=== PATIENT | male | born 1960 | race Caucasian/White ===

== ENCOUNTER 2021-09-29 19:18 | Inpatient (IN) | payer BC, SELFPAY ==
--- OUTSIDE RECORDS SUMMARY | 2021-09-29 19:21 | XMS REPORT | Continuity of Care Document ---
:1960 Author Organization [facility] t Address [address] [place] [address] Care Team Providers Name Role Phone PCP, DOES NOT HAVE A Primary Care Physician Unavailable Provider, Urgent Care Attending Clinician Unavailable Ebranguyen CHIEF ACCOUNTANT Attending Clinician EBRAHIM Attending Clinician Unavailable HUMAN, F Attending Clinician Unavailable Problems Condition Condition Condition Status Onset Resolution Last Treating Co mments Source Name Details Category Date Date Treatment Clinician Date No known No known Disease Unive rs active active ity of problems problems [facility] Allergies, Adverse Reactions, Alerts Allergy Allergy Status Severity Reaction(s) Onset Inactive Treating Comm ents Source Name Type Date Date Clinician NO KNOWN Drug Active Univers ALLERGIE Class ity of S [facility] Social History Social Habit Start Date Stop Date Quantity Comments Source Sex Assigned At Uni versity of [facility] Exposure to SARS-CoV-2 Not sure Un [facility] [place] (event) [facility] Smoking Status Start Date Stop Date Source Never smoker [facility] Medications Ordered Filled Start Stop Current Ordering Indication Dosage Frequency Signature Comments Components Source Medication Medication Date Date Medication? Clinician (SIG) Name Name amLODIPine 2020-0 Yes 5mg Take 5 mg Un jay 5 mg tablet 7-04 by mouth ity of 20:37: daily. [address] Branch carvediloL 2020-0 Yes 25mg Take 25 mg U nivers 25 mg 7-04 by mouth 2 ity of tablet 20:37: (two) [place] times [facility] daily with Branch meals. cephALEXin 2020-0 2020- No [id number] 500mg Take 1 Univers 500 mg -11-21 [id number] capsule by ity of capsule 00:00: 04:59 mouth 2 [place] 00 :00 (two) Medical [facility] daily for 10 days. acetaminoph 2020-0 Yes [id number] 1{tbl} Take 1 Univers en-codeine 4-26 tablet by ity of 300-30 mg 00:00: mouth [place] tablet 00 every 6 Medical (six) Branch hours as needed for Pain (scale 7-10). lisinopril- Yes TAKE 2 [facility] ers hydrochloro 2-06 TABLETS BY it y of thiazide 00:00: MOUTH ONCE Davy as 20-12.5 mg 00 DAILY FOR [facility] per tablet 90 DAYS [place] Vital Signs Vital Name Observation Time Observation Value Comments Source Systolic blood 2019-11-11 20:32:00 136 mm[Hg] Univer sity of pressure [facility] Diastolic blood 2019-11-11 20:32:00 85 mm[facility]Hg[facility] rate 2019-11-11 20:32:00 64 /min [facility] Body temperature 2019-11-11 20:32:00 37 Beatriz [facility] Respiratory rate 2019-11-11 20:32:00 18 /min [facility] Body height 2019-11-11 20:32:00 181.6 cm [facility] Body weight 2019-11-11 20:32:00 137.893 kg [facility] BMI 2019-11-11 20:32:00 41.81 kg/m2 [facility] Oxygen saturation in 2019-11-11 20:32:00 96 /min [facility] Arterial blood by [facility] Pulse oximetry Branch Procedures This patient has no known procedures. Encounters Start End Encounter Admission Attending Care Care Encounter Source Date/Time Date/Time Type Type Clinicians Facility Department ID 2020-07-06 2020-07-06 Outpatient [facility] [id number] Univers 12:30:00 12:30:[address] [facility] 2019-11-11 2019-11-11 Urgent Provider, [facility] [id number] Univers 15:29:27 15:49:27 [facility] [id number] ity [facility] [id number] Davy as Nathaly [id number] Id dical [facility] [address] 2019-11-11 2019-11-11 Outpatient R LAUREL [facility] [id number] Univers 15:00:00 15:00:00 MAIKEL arnold [facility] 2019-09-03 2019-09-03 Outpatient [facility] [id number] Univers 15:00:00 15:00:00 MARCE [facility] Results This patient has no known results.
[2021-09-29 21:52] LABS: Absolute Lymphocytes (CBC) 1.3 K/uL (0.7-4.9); Hematocrit 42.8 % (39.6-49.0); MPV 7.4 fL (7.6-11.3); RBC Red Blood Cell Count 4.74 M/uL (4.33-5.43)
[2021-09-29 22:00] LABS: Albumin 2.9 g/dL (3.4-5.0); Bilirubin Total 0.5 mg/dL (0.2-1.0); Potassium 4.2 mmol/L (3.5-5.1); Protein, Total 7.7 g/dL (6.4-8.2)
[2021-09-29 22:05] LABS: Protime INR 1.1
--- NOTE | 2021-09-29 23:22 | EDPHYS ---
Physician Documentation [facility] Name: Audi Alfaro Age: 61 yrs Sex: Male : 1960 Arrival Date: 09/29/2021 Time: 20:08 Bed 3 Private MD: ED Physician Kermit Boyle HPI: 09/29 21:30 This 61 yrs old Male presents to ER via Other with complaints of Foot Pain. cp 21:30 The patient presents with pain, that is acute. cp 21:30 The complaints affect the right foot. Context: resulted from an unknown cause, the cp patient can fully bear weight, the patient is able to ambulate, with moderate difficulty. Onset: The symptoms/episode began/occurred gradually. Associated signs and symptoms: Pertinent positives: warmth, Pertinent negatives fever. Historical: - Allergies: 20:54 No Known Allergies; tw5 - PMHx: 20:54 Hypertensive disorder; Irregular heart rate; tw5 - Immunization history:: Flu vaccine is not up to date. - Social history:: Smoking status: Patient denies any tobacco usage or history of. ROS: 21:33 Constitutional: Negative for body aches, chills, fever, poor PO intake. cp 21:33 Eyes: Negative for injury, pain, redness, and discharge. cp 21:33 ENT: Negative for drainage from ear(s), ear pain, sore throat, difficulty swallowing, difficulty handling secretions. 21:33 Cardiovascular: Negative for chest pain, palpitations. 21:33 Respiratory: Negative for cough, shortness of breath, wheezing. 21:33 Abdomen/GI: Negative for abdominal pain, nausea, vomiting, and diarrhea. 21:33 Back: Negative for pain at rest, pain with movement. 21:33 MS/extremity: Positive for pain, of the right foot, Negative for injury or acute deformity. 21:33 Neuro: Negative for altered mental status, headache, weakness. 21:33 All other systems are negative. Exam: 21:33 ECG was reviewed by the Attending Physician. cp 21:40 Constitutional: The patient appears in no acute distress, alert, awake, cp non-diaphoretic, non-toxic, well developed, well nourished. 21:40 Head/Face: Normocephalic, atraumatic. cp 21:40 Eyes: Periorbital structures: appear normal, Conjunctiva: normal, no exudate, no injection, Sclera: no appreciated abnormality, Lids and lashes: appear normal, bilaterally. 21:40 ENT: External ear(s): are unremarkable, Nose: is normal, Mouth: Lips: moist, Oral mucosa: moist, Posterior pharynx: Airway: no evidence of obstruction, patent. 21:40 Chest/axilla: Inspection: normal. 21:40 Cardiovascular: Rate: normal, Rhythm: regular. 21:40 Respiratory: the patient does not display signs of respiratory distress, Respirations: normal, no use of accessory muscles, no retractions, labored breathing, is not present, Breath sounds: are clear throughout, no decreased breath sounds, no stridor, no wheezing. 21:40 Abdomen/GI: Inspection: abdomen appears normal, Palpation: abdomen is soft and non-tender, in all quadrants. 21:40 Musculoskeletal/extremity: Extremities: noted in the right foot and right lower leg: erythema, pain, swelling, tenderness, drainage from multiple superficial wounds noted on dorsum of foot, Pulses: noted to be 2+ in the right dorsalis pedis artery and left dorsalis pedis artery. 21:40 Skin: rash a severe rash is noted, consistent with eczema, on the right foot and left foot and left lower leg and right lower leg. 21:40 Neuro: Orientation: to person, place \\T\\ time. Mentation: is normal, Motor: moves all fours, strength is normal. Vital Signs: 20:49 Pulse 65; Resp 18; Temp 98.7(O); Pulse Ox 99% on R/A; Weight 120.2 kg; Height 5 ft. 11 tw5 in. (180.34 cm); Pain 8/10; 21:54 BP 122 / 80; Pulse 64; Resp 22 S; Pulse Ox 100% on R/A; lg3 22:33 BP 112 / 78; Pulse 65; Resp 20 S; Pulse Ox 100% on R/A; lg3 23:44 BP 120 / 81; Pulse 64; Resp 22 S; Pulse Ox 100% on R/A; lg3 09/30 00:49 BP 129 / 87; Pulse 64; Resp 18 S; Pulse Ox 100% on R/A; lg3 09/29 20:49 Body Mass Index 36.96 (120.20 kg, 180.34 cm) tw5 MDM: 09/29 21:00 Differential diagnosis: cellulitis, abscess, DVT. cp 21:03 Patient medically screened. 23:00 Data reviewed: vital signs, nurses notes, lab test result(s), EKG, radiologic studies, cp plain films. 23:00 Test interpretation: by ED physician or midlevel provider: ECG, plain radiologic cp studies. 23:10 Physician consultation: Rebel Mccurdy was called at 23:10, was contacted at 23:10, regarding admission, to the medical/surgical unit. patient's condition, and will see patient in ED, shortly. 09/29 20:56 Order name: Blood Culture Adult (2) 09/29 20:56 Order name: CBC with Diff; Complete Time: 22:56 09/29 20:56 Order name: CMP; Complete Time: 22:56 09/29 20:56 Order name: Lactate; Complete Time: 22:56 09/29 20:56 Order name: Protime (+inr); Complete Time: 22:56 09/29 20:56 Order name: Ptt, Activated; Complete Time: 22:56 09/29 20:56 Order name: Procalcitonin; Complete Time: 22:56 09/29 20:56 Order name: CRP; Complete Time: 22:56 09/29 20:56 Order name: XRAY Foot RIGHT 3 View 09/29 20:56 Order name: ESR; Complete Time: 22:56 09/29 21:45 Order name: US Extremity Venous W Compression Esdras 09/29 23:22 Order name: COVID-19 SARS RT PCR (Document "Date of Onset" if Symptomatic) mw2 09/29 20:56 Order name: Cardiac monitoring; Complete Time: 21:39 cp 09/29 20:56 Order name: EKG - Nurse/Tech; Complete Time: 21:31 cp 09/29 20:56 Order name: IV Saline Lock - Large Bore; Complete Time: 21:23 cp 09/29 20:56 Order name: Labs collected and sent; Complete Time: 21:23 cp 09/29 20:56 Order name: O2 Per Protocol; Complete Time: 21:33 cp 09/29 20:56 Order name: O2 Sat Monitoring; Complete Time: 21:33 cp EC:33 Rate is 60 beats/min. Rhythm is regular. [place] interval is normal. QRS interval is normal. cp QT interval is normal. T waves are Inverted in lead aVR. Interpreted by me. Reviewed by me. Administered Medications: 23:32 Drug: Cefepime 1 grams Route: IVPB; Rate: 200 ml/hr; Infused Over: 30 mins; Site: right lg3 antecubital; 23:39 Follow up: Response: No adverse reaction; IV Status: Completed infusion; IV Intake: lg3 100ml 23:40 Drug: vancoMYCIN 1 grams Route: IVPB; Infused Over: 2 hrs; Site: right antecubital; lg3 09/30 01:41 Follow up: Response: No adverse reaction; IV Status: Completed infusion; IV Intake: as6 250ml Disposition: 04:03 Co-signature as Attending Physician, Kermit Boyle MD I agree with the assessment and kdr plan of care. Disposition Summary: 09/29/21 23:21 Hospitalization Ordered Hospitalization Status: Inpatient Admission cp Condition: Stable cp Problem: new cp Symptoms: have improved cp Bed/Room Type: Standard cp Provider: Jeniffer Pedersen(09/29/21 23:25) la1 Location: Telemetry/MedSurg (Inpatient)(09/30/21 01:22) mw Room Assignment: [facility](09/30/21 01:22) Diagnosis - Cellulitis of right lower limb cp Forms: - Medication Reconciliation Form cp - SBAR form cp Signatures: Dispatcher [employer] EDMS Tamiko Mcleod RN RN mw Rittger, Kevin, MD MD kdr Attema, Lee, CREDIT COUNSELOR-C CREDIT COUNSELOR-Cla1 Armen Collazo PA PA cp Gibson, Lacie, RN RN 3 Gloria Moore tw5 Bernard Flaherty RN as6 Corrections: (The following items were deleted from the chart) 09/29 23: 23:21 Telemetry/MedSurg (Inpatient) [facility] 23:21 cp 23:21 Hemant Dawn la1 09/30 00:09/29 23:22 [facility] ER HOLD mw 09/30 00:09/29 23:22 ERHOLD- mw
--- NOTE | 2021-09-29 23:22 | ER ---
Nurse's Notes [facility] Name: Audi Alfaro Age: 61 yrs Sex: Male : 1960 Arrival Date: 09/29/2021 Time: 20:08 Bed 3 Private MD: Diagnosis: Cellulitis of right lower limb Presentation: 09/29 20:49 Chief complaint: Patient states: "My feet all weekend are hurting. Last night I could tw5 not stand on the left foot at all. I have been suffering since last fall from eczema, it now looks like my feet are rotting away.". Coronavirus screen: Vaccine status: Patient reports receiving the 2nd dose of the covid vaccine. [employer]. Ebola Screen: Patient negative for fever greater than or equal to 101.5 degrees Fahrenheit, and additional compatible Ebola Virus Disease symptoms Patient denies exposure to infectious person. Patient denies travel to an Ebola-affected area in the 21 days before illness onset. Initial Sepsis Screen: Does the patient meet any 2 criteria? No. Patient's initial sepsis screen is negative. Does the patient have a suspected source of infection? Yes: Skin breakdown/wound. Risk Assessment: Do you want to hurt yourself or someone else? Patient reports no desire to harm self or others. Onset of symptoms is unknown. 20:49 Method Of Arrival: Other tw5 20:49 Acuity: ULYSSES 3 tw5 Triage Assessment: 20:54 General: Appears in no apparent distress. Behavior is calm, cooperative, appropriate tw5 for age. Pain: Complains of pain in right leg Pain currently is 8 out of 10 on a pain scale. Derm: Skin is moist, Skin is red, Skin temperature is warm. Historical: - Allergies: 20:54 No Known Allergies; tw5 - PMHx: 20:54 Hypertensive disorder; Irregular heart rate; tw5 - Immunization history:: Flu vaccine is not up to date. - Social history:: Smoking status: Patient denies any tobacco usage or history of. Screenin:56 Abuse screen: Denies threats or abuse. Denies injuries from another. Nutritional tw5 screening: No deficits noted. Tuberculosis screening: No symptoms or risk factors identified. Fall Risk Ambulatory Aid- Crutches/Cane/Walker (15 pts). Assessment: 21:39 General: Appears in no apparent distress. comfortable. Pain: Complains of pain in right lg3 foot and left foot. Neuro: No deficits noted. Sales Agitation-Sedation Scale (RASS): 0 - Alert and Calm Level of Consciousness is awake, alert, obeys commands, Oriented to person, place, time, situation. Cardiovascular: No deficits noted. Denies chest pain, shortness of breath. Respiratory: No deficits noted. Airway is patent Trachea midline Respiratory effort is even, unlabored, Respiratory pattern is regular, symmetrical. GI: No deficits noted. Abdomen is round non-distended, obese. : No deficits noted. No signs and/or symptoms were reported regarding the genitourinary system. EENT: No deficits noted. No signs and/or symptoms were reported regarding the EENT system. Derm: generalized eczema noted. Musculoskeletal: No deficits noted. No signs and/or symptoms reported regarding the musculoskeletal system. 22:32 Reassessment: Patient appears in no apparent distress at this time. No changes from lg3 previously documented assessment. Patient and/or family updated on plan of care and expected duration. Pain level reassessed. Patient is alert, oriented x 3, equal unlabored respirations, skin warm/dry/pink. 09/30 00:49 Reassessment: Patient appears in no apparent distress at this time. No changes from lg3 previously documented assessment. Patient and/or family updated on plan of care and expected duration. Pain level reassessed. Patient is alert, oriented x 3, equal unlabored respirations, skin warm/dry/pink. Vital Signs: 09/29 20:49 Pulse 65; Resp 18; Temp 98.7(O); Pulse Ox 99% on R/A; Weight 120.2 kg; Height 5 ft. 11 tw5 in. (180.34 cm); Pain 8/10; 21:54 BP 122 / 80; Pulse 64; Resp 22 S; Pulse Ox 100% on R/A; lg3 22:33 BP 112 / 78; Pulse 65; Resp 20 S; Pulse Ox 100% on R/A; lg3 23:44 BP 120 / 81; Pulse 64; Resp 22 S; Pulse Ox 100% on R/A; lg3 09/30 00:49 BP 129 / 87; Pulse 64; Resp 18 S; Pulse Ox 100% on R/A; lg3 09/29 20:49 Body Mass Index 36.96 (120.20 kg, 180.34 cm) tw5 ED Course: 09/29 20:08 Patient arrived in ED. ag3 20:12 Armen Collazo PA is PHCP. cp 20:12 Kermit Boyle MD is Attending Physician. cp 20:54 Triage completed. tw5 20:54 Arm band placed on right wrist. tw5 21:03 Joanna Pete, RN is Primary Nurse. lg3 21:23 Inserted saline lock: 20 gauge in right antecubital area, using aseptic technique. as6 Blood collected. 21:39 Patient has correct armband on for positive identification. Bed in low position. Call lg3 light in reach. Side rails up X 1. Client placed on continuous cardiac and pulse oximetry monitoring. NIBP monitoring applied. monitoring tech on. Door closed. Noise minimized. Warm blanket given. Family accompanied patient. 21:39 Procalcitonin Sent. lg3 21:39 CRP Sent. lg3 21:39 Blood Culture Adult (2) Sent. lg3 21:39 CBC with Diff Sent. lg3 21:39 CMP Sent. lg3 21:39 Lactate Sent. lg3 21:39 Protime (+inr) Sent. lg3 21:39 Ptt, Activated Sent. lg3 21:46 XRAY Foot RIGHT 3 View In Process Unspecified. EDMS 22:13 US Extremity Venous W Compression Esdras In Process Unspecified. EDMS 23:20 Hemant Dawn is Hospitalizing Provider. cp 23:25 Jeniffer Pedersen MD is Hospitalizing Provider. la1 09/30 01:31 No provider procedures requiring assistance completed. Patient admitted, IV remains in lg3 place. intact, No redness/swelling at site. Administered Medications: 09/29 23:32 Drug: Cefepime 1 grams Route: IVPB; Rate: 200 ml/hr; Infused Over: 30 mins; Site: right lg3 antecubital; 23:39 Follow up: Response: No adverse reaction; IV Status: Completed infusion; IV Intake: lg3 100ml 23:40 Drug: vancoMYCIN 1 grams Route: IVPB; Infused Over: 2 hrs; Site: right antecubital; lg3 09/30 01:41 Follow up: Response: No adverse reaction; IV Status: Completed infusion; IV Intake: as6 250ml Medication: 09/29 23:43 VIS not applicable for this client. lg3 Intake: 23:39 IV: 100ml; Total: 100ml. lg3 09/30 01:41 IV: 250ml; Total: 350ml. as6 Outcome: 09/29 23:21 Decision to Hospitalize by Provider. cp 09/30 01:31 Admitted to Med/surg accompanied by tech, via wheelchair, room 212, Report called to lg3 Cameron Condition: stable Instructed on the need for admit. 01:49 Patient left the ED. as6 Signatures: Dispatcher [employer] EDMS Rebel Mccurdy, NAVAL GUNFIRE SPOTTER-C NAVAL GUNFIRE SPOTTER-Cla1 Armen Collazo PA PA cp Gomez, Alice ag3 Joanna Pete, RN RN lg3 Gloria Moore tw5 Bernard Flaherty, SEBASTIAN RN as6
[2021-09-29] MEDS ORDERED: NA CHLORIDE 0.9% 250 ML ONE (23:26)
[2021-09-29] MEDS ORDERED: VANCOMYCIN 1 GM/VIAL ONE (23:26)
[2021-09-29] MEDS ORDERED: NA CHLORIDE 0.9% 100 ML ONE (23:27)
[2021-09-29] MEDS ORDERED: CEFEPIME 1 GM/VIAL ONE (23:27)
--- NOTE | 2021-09-29 23:39 | P.HP ---
Certification for Inpatient Patient admitted to: Inpatient With expected LOS: >2 Midnights Patient will require the following post-hospital care: None Practitioner: I am a practitioner with admitting privileges, knowledge of patient current condition, hospital course, and medical plan of care. Services: Services provided to patient in accordance with Admission requirements found in Title 42 Section 412.3 of the Code of Federal Regulations Patient History Date of Service: 09/29/21 Reason for admission: BLE cellulitis History of Present Illness: 61-year-old male history of eczema and hypertension presented to the emergency department for redness, warmth and weeping of bilateral lower extremities. Patient reports that he deals with severe eczema chronically worse over the last few months he is on Dupixent from his wedding planner he reports over the course of the last couple of weeks he has had worsening of the redness, weeping of bilateral lower extremities as well as pain in his feet. Patient was evaluated in the emergency department his labs were significant for leukocytosis ultrasound of bilateral lower extremities negative for DVT x-ray pending. His initial lactic acid was 1.4 he was given vancomycin/cefepime in the emergency department is also noted to have an elevated C-reactive protein level ED provider wishes to admit for further evaluation and management of bilateral lower extremity cellulitis. Allergies No Known Allergies Allergy (Verified 03/15/16 08:20) Home Medications: Carvedilol 25 mg PO BID 03/15/16 Indomethacin [Indocin*] 50 mg PO BID PRN 03/15/16 Lisinopril/Hydrochlorothiazide [Lisinopril-Hctz 20-12.5 mg Tab] 1 tab PO DAILY 03/15/16 - Past Medical/Surgical History Diabetic: No -: svt -: Hypertension -: Eczema -: appendectomy (7 years old) -: ear tubes (child0 Psychosocial/ Personal History: Patient lives at home with family - Family History Mother -: Heart disease, Hypertension Father -: Hypertension, Diabetes - Social History Smoking Status: Never smoker Alcohol use: Yes CD- Drugs: No Caffeine use: Yes Place of Residence: Home Review of Systems 10-point ROS is otherwise unremarkable General: Chills Musculoskeletal: Leg Pain, Foot Pain Integumentary: Rash, As per HPI Physical Examination - Physical Exam General: Alert, In no apparent distress, Oriented x3 HEENT: Atraumatic, PERRLA, Mucous membr. moist/pink, EOMI, Sclerae nonicteric Neck: Supple, 2+ carotid pulse no bruit, No LAD, Without JVD or thyroid abnormality Respiratory: Clear to auscultation bilaterally, Normal air movement Cardiovascular: Regular rate/rhythm, Normal S1 S2 Gastrointestinal: Normal bowel sounds, No tenderness Musculoskeletal: Erythema, Tenderness, Warmth Integumentary: Rash(es) (Extensive eczema changes significantly worse to bilateral lower extremities but present throughout upper and lower extremities, trunk), Skin breakdown, Erythema, Warmth Neurological: Normal speech, Normal strength at 5/5 x4 extr, Normal tone, Normal affect - Studies Laboratory Data (last 24 hrs) 09/29/21 21:19: PT 12.1, INR 1.10, APTT 37.0 H 09/29/21 21:19: Sodium 135 L, Potassium 4.2, BUN 15, Creatinine 1.02, Glucose 113 H, Total Bilirubin 0.5, AST 23, ALT 29, Alkaline Phosphatase 56 09/29/21 21:19: WBC 13.0 H, Hgb 14.3, Hct 42.8, Plt Count 305 Assessment and Plan - Plan Assessment: Bilateral lower extremity cellulitis complicated with severe eczema Hypertension Plan: Bilateral lower extremity cellulitis complicated with severe eczema: Blood cultures were obtained in the emergency department continue broad-spectrum antibiotics cefepime/vancomycin at this time. Labs are notable for leukocytosis. DVT study is negative patient went to follow-up with dermatology outpatient for further evaluation of his eczema. Hypertension: Continue home medication DVT PPX: Lovenox Code status: Full Discharge Plan: Home Plan to discharge in: 48 Hours - Advance Directives Does patient have a Living Will: No Does patient have a Durable POA for Healthcare: No - Code Status/Comfort Care Code Status Assessed: Yes (Full code) Critical Care: No Time Spent Managing Pts Care (In Minutes): 55
[2021-09-30] MEDS ORDERED: HYDROCODONE/APAP 5/325 MG TAB PO PRN (02:07)
[2021-09-30] MEDS ORDERED: ONDANSETRON 4 MG/2 ML VIAL IV PRN (02:07)
[2021-09-30] MEDS ORDERED: VANCOMYCIN 1 GM in NA CHLORIDE 0.9% 250 ML IVPB SCH (02:07)
[2021-09-30 02:42] VITALS: O2SAT 96
[2021-09-30] MEDS ORDERED: VANCOMYCIN 1 GM in NA CHLORIDE 0.9% 250 ML IVPB ONE (03:00)
[2021-09-30 03:29] LABS: Urine Appearance Clear (Clear); Urine Bilirubin Negative (Negative); Urine Blood Negative (Negative); Urine Color Orange (Yellow); Urine Glucose Negative (Negative); Urine Protein 1+ (Negative)
[2021-09-30 03:37] LABS: Urine Microscopic Reflex ORDER UMIC
[2021-09-30 03:52] LABS: Urine Bacteria <20 /HPF (NONE SEEN); Urine RBC <5 /HPF (NONE SEEN); Urine Urothelial Cells <5 /HPF (NONE SEEN)
[2021-09-30 04:11] LABS: Absolute Lymphocytes (CBC) 1.4 K/uL (0.7-4.9); Hematocrit 41.6 % (39.6-49.0); Lymphocytes % 12.1 % (15.3-44.8); MPV 7.1 fL (7.6-11.3); RBC Red Blood Cell Count 4.65 M/uL (4.33-5.43)
[2021-09-30 04:23] LABS: Albumin 2.7 g/dL (3.4-5.0); Bilirubin Total 0.7 mg/dL (0.2-1.0); Potassium 4.3 mmol/L (3.5-5.1); Protein, Total 7.4 g/dL (6.4-8.2)
--- NOTE | 2021-09-30 07:12 | RAD REPORT ---
EXAM DESCRIPTION: US - Extrem Venous W Compress Esdras - 09/29/2021 10:11 pm CLINICAL HISTORY: SWELLING COMPARISON: No comparisons TECHNIQUE: Real-time sonographic evaluation of the lower extremity deep venous systems was performed using color Doppler, grayscale, and compression. FINDINGS: Bilateral lower extremities. Normal compressibility, flow augmentation, phasic flow and spontaneous flow is identified in both the left and right lower extremity deep venous systems. No intraluminal filling defects seen. IMPRESSION: No DVT in either lower extremity.
[2021-09-30] MEDS ORDERED: ENOXAPARIN 40 MG/0.4 ML SQ SCH (09:00)
--- NOTE | 2021-09-30 09:09 | EKG ---
Test Date: 2021-09-29 Test Time: 21:26:13 Interactive Art Director: MEASUREMENT RESULTS: Intervals: Rate: 60 MS: 184 QRSD: 92 QT: 426 QTc: 426 [place]: P: 66 MS: 184 QRS: 58 T: 64 INTERPRETIVE STATEMENTS: Normal sinus rhythm Normal ECG Compared to ECG 03/15/2016 05:48:49 No significant changes Electronically Signed On 09-30-21 09:08:00 CDT by Sandor Moseley
[2021-09-30] MEDS: CEFEPIME 1 GM in NA CHLORIDE 0.9% 100 ML IV SCH ×2 (09:13→21:39)
--- NOTE | 2021-09-30 11:55 | RAD REPORT ---
EXAM DESCRIPTION: RAD - Foot Right 3 View - 09/29/2021 9:45 pm CLINICAL HISTORY: 61 years, Male, PAIN COMPARISON: None. FINDINGS: 3 X-ray views of the right foot (Frontal, lateral and oblique views) were performed. No acute bony injuries were demonstrated. There are degenerative changes throughout the foot especial ly along the presence second metatarsophalangeal joint as well as within the midfoot articulation. Sp urs are identified within the posterior aspect of the calcaneus at the site of insertion of the Achil les tendon and plantaris fascia. There are no gross intraosseous lesions. No periosteal reaction were seen. IMPRESSION: No acute bony injuries were demonstrated. Degenerative changes. Electronically signed by: Kendall Hudson MD 09/30/2021 1:22 AM CDT Due to temporary technical issues with the PACS/Fluency reporting system, reports are being signed by the in house radiologists without review as a courtesy to insure prompt reporting. The interpreting radiologist is fully responsible for the content of the report.
[2021-09-30] MEDS ORDERED: DIPHENHYDRAMINE 25 MG TAB/CAP PO PRN (13:19)
--- NOTE | 2021-09-30 13:20 | P.PN ---
Subjective Date of Service: 09/30/21 Chief Complaint: BLE cellulitis Subjective: No new changes, No C/O voiced Physical Examination - Vital Signs Temperature: 97.7 F Blood Pressure: 110/55 Pulse: 56 Respirations: 16 Pulse Ox (%): 97 - Studies Laboratory Data (last 24 hrs) 09/29/21 21:19: PT 12.1, INR 1.10, APTT 37.0 H 09/29/21 21:19: Sodium 135 L, Potassium 4.2, BUN 15, Creatinine 1.02, Glucose 113 H, Total Bilirubin 0.5, AST 23, ALT 29, Alkaline Phosphatase 56 09/29/21 21:19: WBC 13.0 H, Hgb 14.3, Hct 42.8, Plt Count 305 Assessment And Plan Physician Review: Patient Assessed, Agree with Above Assessment and Plan Physician Review Additional Text: foot xray - IMPRESSION: No acute bony injuries were demonstrated. Degenerative changes. Physical Exam General: Alert, In no apparent distress, Oriented x3 HEENT: Atraumatic, PERRLA, Mucous membr. moist/pink, EOMI, Sclerae nonicteric Neck: Supple, 2+ carotid pulse no bruit, No LAD, Without JVD or thyroid abnormality Respiratory: Clear to auscultation bilaterally, Normal air movement Cardiovascular: Regular rate/rhythm, Normal S1 S2 Gastrointestinal: Normal bowel sounds, No tenderness Musculoskeletal: Erythema, Tenderness, Warmth Integumentary: Rash(es) (Extensive eczema -scaly rash over trunk and xtrending to extening to bilateral lower extremities but present throughout upper and lower extremities, trunk), small necrotic like areas of left great toe Neurological: Normal speech, Normal strength at 5/5 x4 extr, Normal tone, Normal affect - Studies Laboratory Data (last 24 hrs) 09/29/21 21:19: PT 12.1, INR 1.10, APTT 37.0 H 09/29/21 21:19: Sodium 135 L, Potassium 4.2, BUN 15, Creatinine 1.02, Glucose 113 H, Total Bilirubin 0.5, AST 23, ALT 29, Alkaline Phosphatase 56 09/29/21 21:19: WBC 13.0 H, Hgb 14.3, Hct 42.8, Plt Count 305 Assessment and Plan - Plan Assessment: Bilateral lower extremity cellulitis complicated with severe eczema Hypertension Plan: 1 chronic generalized eczemastatus post failed outpatient topical regimen although patient unsure of name of previous steroid medication States he follows with dermatology clinic here in [place] We will do trial of desonide and see if response 2 acute low extremity cellulitison background of generalized eczemafollow blood culture Continue antibiotics Surgery consult for left great toe digits necrotic area might need debridement bilateral lower extremity cellulitis complicated with severe eczema: - DVT study is negative 3 hypertensioncontrolled 09/30/21 13:18
[2021-09-30] MEDS ORDERED: VANCOMYCIN 2 GM in NA CHLORIDE 0.9% 500 ML IVPB SCH ×2 (16:00→18:00)
[2021-09-30] MEDS: CLOBETASOL 0.05 % CREAM 15GM TOP SCH (21:38)
[2021-10-01 04:08] LABS: Absolute Lymphocytes (CBC) 1.6 K/uL (0.7-4.9); Hematocrit 40.4 % (39.6-49.0); Lymphocytes % 12.1 % (15.3-44.8); MPV 7.3 fL (7.6-11.3); RBC Red Blood Cell Count 4.49 M/uL (4.33-5.43)
[2021-10-01 04:23] LABS: Albumin 2.5 g/dL (3.4-5.0); Bilirubin Total 0.6 mg/dL (0.2-1.0); Potassium 3.6 mmol/L (3.5-5.1); Protein, Total 7.1 g/dL (6.4-8.2)
[2021-10-01 04:58] VITALS: BMI 27.4
[2021-10-01] MEDS ORDERED: POTASSIUM CL SA 10 MEQ TAB PO ONE (09:00)
--- NOTE | 2021-10-01 09:43 | P.DS ---
Admission Date: 09/29/21 Discharge Date: 10/01/21 Disposition: ROUTINE DISCHARGE Discharge Condition: FAIR Reason for Admission: BLE cellulitis Brief History of Present Illness: History of Present Illness: 61-year-old male history of eczema and hypertension presented to the emergency department for redness, warmth and weeping of bilateral lower extremities. Patient reports that he deals with severe eczema chronically worse over the last few months he is on Dupixent from his store planner he reports over the course of the last couple of weeks he has had worsening of the redness, weeping of bilateral lower extremities as well as pain in his feet. Patient was evaluated in the emergency department his labs were significant for leukocytosis ultrasound of bilateral lower extremities negative for DVT x-ray pending. His initial lactic acid was 1.4 he was given vancomycin/cefepime in the emergency department is also noted to have an elevated C-reactive protein level ED provider wishes to admit for further evaluation and management of bilateral lower extremity cellulitis. Allergies No Known Allergies Allergy (Verified 03/15/16 08:20) Home Medications: Carvedilol 25 mg PO BID 03/15/16 Indomethacin [Indocin*] 50 mg PO BID PRN 03/15/16 Lisinopril/Hydrochlorothiazide [Lisinopril-Hctz 20-12.5 mg Tab] 1 tab PO DAILY 03/15/16 Hospital Course: Patient with history of generalized eczema on her adjusted medication per his outpatient dermatology, presented with pain and increased redness of lower extremity rash. Patient of note has generalized body rash evenly distributed consistent with his chronic eczema. He states he is not on any topical medication at this time. He was started on topical steroids as well as antibiotics. Area of increased redness over bilateral lower extremity appears to be improving. His antibiotics have been switched to Levaquin and Augmentin. He is generalized body rash improved slightly with the topical steroid cream. Patient advised to continue topical steroid cream to all his areas of generalized rash twice daily until follow-up with his store planner. - Physical Exam General: Alert, In no apparent distress, Oriented x3 HEENT: Atraumatic, PERRLA, Mucous membr. moist/pink, EOMI, Sclerae nonicteric Neck: Supple, 2+ carotid pulse no bruit, No LAD, Without JVD or thyroid abnormality Respiratory: Clear to auscultation bilaterally, Normal air movement Cardiovascular: Regular rate/rhythm, Normal S1 S2 Gastrointestinal: Normal bowel sounds, No tenderness Musculoskeletal: Erythema, Tenderness, Warmth Integumentary: Rash(es) (Extensive eczema over trunk and extending to bilateral lower extremities , fading area of increased lower extremity erythema, trunk), Skin breakdown, Erythema, Warmth Neurological: Normal speech, Normal strength at 5/5 x4 extr, Normal tone, Normal affect Vital Signs/Physical Exam: Temp Pulse Resp BP Pulse Ox 98.5 F 78 94 H 154/76 H 94 10/01/21 04:00 10/01/21 04:00 10/01/21 04:00 10/01/21 04:00 10/01/21 04:00 Laboratory Data at Discharge: WBC 12.9 K/uL (4.3-10.9) H 10/01/21 03:04 Hgb 13.3 g/dL (13.6-17.9) L 10/01/21 03:04 Hct 40.4 % (39.6-49.0) 10/01/21 03:04 Plt Count 311 K/uL (152-406) 10/01/21 03:04 PT 12.1 SECONDS (9.5-12.5) 09/29/21 21:19 INR 1.10 09/29/21 21:19 APTT 37.0 SECONDS (24.3-36.9) H 09/29/21 21:19 Sodium 135 mmol/L (136-145) L 10/01/21 03:04 Potassium 3.6 mmol/L (3.5-5.1) 10/01/21 03:04 BUN 19 mg/dL (7-18) H 10/01/21 03:04 Creatinine 0.87 mg/dL (0.55-1.3) 10/01/21 03:04 Glucose 115 mg/dL (74-106) H 10/01/21 03:04 Total Bilirubin 0.6 mg/dL (0.2-1.0) 10/01/21 03:04 AST 19 U/L (15-37) 10/01/21 03:04 ALT 27 U/L (12-78) 10/01/21 03:04 Alkaline Phosphatase 50 U/L (45-117) 10/01/21 03:04 Home Medications: Carvedilol 25 mg PO DAILY 03/15/16 Lisinopril/Hydrochlorothiazide [Lisinopril-Hctz 20-12.5 mg Tab] 2 tab PO DAILY 03/15/16 Dupilumab [Dupixent Syringe] 300 mg SQ SEECOM 09/30/21 Amoxicillin/Potassium Clav [Augmentin 500-125 Tablet] 1 each PO BID #14 tablet 10/01/21 Clobetasol [Temovate Cream 0.05%*] 1 appl TOP BID #3 tube 10/01/21 Diphenhydramine [Benadryl*] 25 mg PO Q12H PRN #6 tab 10/01/21 Levofloxacin [Levaquin] 500 mg PO DAILY #10 tablet 10/01/21 New Medications: Amoxicillin/Potassium Clav [Augmentin 500-125 Tablet] 1 each PO BID #14 tablet Diphenhydramine [Benadryl*] 25 mg PO Q12H PRN #6 tab PRN Reason: Itching Levofloxacin [Levaquin] 500 mg PO DAILY #10 tablet Clobetasol [Temovate Cream 0.05%*] 1 appl TOP BID #3 tube Physician Discharge Instructions: follow in 1 week with your Dermatology clinic Diet: Regular Activity: Ad lilly Followup: NONE,NONE [Primary Care Provider] - Time spent managing pt's care (in minutes): 35
[2021-10-01 09:53] VITALS: BP 144/83; TEMP 97.2
[2021-10-01] MEDS: CLOBETASOL 0.05 % CREAM 15GM TOP SCH (09:57)
--- NOTE | 2021-10-01 14:40 | CON ---
Date of Consultation: 10/01/2021 Reason For Service: History of open wound on lower leg and history of eczema. History Of Present Illness: This is the case of a 61-year-old patient admitted to the hospital with cellulitis of the lower extremity. The patient had chronic skin problems treated before by his derma tologist with severe eczema, so dry skin that creates cracks in the skin allowing superimposed infect ion to develop. During the evaluation this time, the patient found to have also a toe with some of t hose with devitalized tissue present and a surgical consult was obtained for evaluation for possible debridement. The patient states he has been on steroids in the past and that cleared him up, but the n after that when he finished his steroid by mouth, the eczema comes back once again. He was explain ed in the past about the autoimmune disease. He has not followed on that. Past Medical History: As above. Allergies: NONE. Social History: He does not smoke. He does not drink alcohol. Family History: Noncontributory. Review of Systems: Denies any shortness of breath, any chest pain, any fever. Ten points otherwise unremarkable. Physical Examination: General: Patient is awake, alert. Chest: Clear. Abdomen: Soft and depressible. Extremities: Good capillary refill. Dorsalis pedis pulses still present although due to the thick s kin is hard to palpate sometimes. Both lower extremities show severe eczema. Skin very thick. Many of the times the patient will have crack in the skin. On the distal toe, the patient has some devit alized tissue that not only the eczema damage but a constant cracking of the skin and also propulsion by moving forward is showing more signs of wear and tear, but that area of the toe shows dry, no flu ctuance and he does not have to be debrided at this moment. The x-ray was reviewed with the patient. Plan: Continue current treatment. This patient may have to be seen by a campus ambassador, dermatdick davey once again. The pros and cons of immunosuppressants discussed with the patient and obviously he u nderstands the risks of that. That is why he does not use it. I always encourage him to see his rhe umatologist, dermatology because in the market there are always new medications to try to control his severe eczema, which is providing a point of entry for bacteria to go in and cellulitis. His legs a t this moment are red, but there is no fluctuance and not need for I and D at this moment. I will fo llow the patient with you and please when he gets discharged I believe we can help him at the [facility] in this institution. We will be glad to see him there when he gets discharged. PAM/ITZ Voice ID: [id number] Report ID: [id number]
== END 2021-10-01 10:40 | disposition home or self-care (01) | DRG 603 ==
LOC: ER 19:18 → 2ND 23:36 → ERHOLD 23:37 → 2ND 09-30 01:32
PROVIDERS: ADMIT Internal Medicine; ATTEND Internal Medicine
DX: L03.116 Cellulitis of left lower limb (principal); L03.115 Cellulitis of right lower limb; L30.9 Dermatitis, unspecified; I10 Essential (primary) hypertension; Z20.822 Contact with and (suspected) exposure to COVID-19
CPT/HCPCS: 36415; 80053; 81003; 81015; 83605; 84145; 85025; 85610; 85652; 85730; 86140; 87040; 93005; 93970; 96365; 96366; 96375; 99285; J0692; J1650; J3370; J7040; J7050; U0003

== ENCOUNTER 2021-10-01 15:02 | Emergency (ER) | payer SELFPAY ==
--- OUTSIDE RECORDS SUMMARY | 2021-10-01 15:05 | XMS REPORT | Continuity of Care Document ---
:1960 Author Organization [facility] t Address [address] [place] [address] Care Team Providers Name Role Phone PCP, DOES NOT HAVE A Primary Care Physician Unavailable Provider, Urgent Care Attending Clinician Unavailable Ebranguyen [employer]ER Attending Clinician EBRAHIM Attending Clinician Unavailable HUMAN, F Attending Clinician Unavailable Problems Condition Condition Condition Status Onset Resolution Last Treating Co mments Source Name Details Category Date Date Treatment Clinician Date No known No known Disease Unive rs active active ity of problems problems [facility] Allergies, Adverse Reactions, Alerts Allergy Allergy Status Severity Reaction(s) Onset Inactive Treating Comm ents Source Name Type Date Date Clinician NO KNOWN Drug Active Univers ALLERGIE Class ity of S [facility] Social History Social Habit Start Date Stop Date Quantity Comments Source Sex Assigned At Uni versity of [facility] Exposure to SARS-CoV-2 Not sure Un [facility]ity [facility] [place] (event) [facility] Smoking Status Start Date Stop Date Source Never smoker [facility] Medications Ordered Filled Start Stop Current Ordering Indication Dosage Frequency Signature Comments Components Source Medication Medication Date Date Medication? Clinician (SIG) Name Name amLODIPine 2020-0 Yes 5mg Take 5 mg Un jay 5 mg tablet 7-04 by mouth ity of 20:37: daily. [address] Branch carvediloL 2020-0 Yes 25mg Take 25 mg U nivers 25 mg 7-04 by mouth 2 ity of tablet 20:37: (two) [place] times [facility] daily with Branch meals. cephALEXin 2020-0 2020- No [id number] 500mg Take 1 Univers 500 mg 7-11-21 [id number] capsule by ity of capsule 00:00: 04:59 mouth 2 [place] 00 :00 (two) Medical [facility] daily for 10 days. acetaminoph 2020-0 Yes [id number] 1{tbl} Take 1 Univers en-codeine 4-26 tablet by ity of 300-30 mg 00:00: mouth [place] tablet 00 every 6 Medical (six) Branch hours as needed for Pain (scale 7-10). lisinopril- Yes TAKE [address] [facility] ers hydrochloro 2-06 TABLETS BY it y of thiazide 00:00: MOUTH ONCE Davy as 20-12.5 mg 00 DAILY FOR [facility] per tablet 90 DAYS [place] Vital Signs Vital Name Observation Time Observation Value Comments Source Systolic blood 2019-11-11 20:32:00 136 mm[Hg] Univer sity of pressure [facility] Diastolic blood 2019-11-11 20:32:00 85 mm[Hg] [facility] Heart rate 2019-11-11 20:32:00 64 /min [facility] Body temperature 2019-11-11 20:32:00 37 Beatriz [facility] Respiratory rate 2019-11-11 20:32:00 18 /min [facility] Body height 2019-11-11 20:32:00 181.6 cm [facility] Body weight 2019-11-11 20:32:00 137.893 kg [facility] BMI 2019-11-11 20:32:00 41.81 kg/m2 [facility] Oxygen saturation in 2019-11-11 20:32:00 96 /min [facility] Arterial blood by [facility] Pulse oximetry Branch Procedures This patient has no known procedures. Encounters Start End Encounter Admission Attending Care Care Encounter Source Date/Time Date/Time Type Type Clinicians Facility Department ID 2020-07-06 2020-07-[address] [facility] [id number] Univers 12:30:00 12:30:00 ity of [facility] 2019-11-11 2019-11-11 Urgent Provider, [facility] [id number] Univers 15:29:27 15:49:27 [facility] [id number] ity [facility] [id number] Davy as Nathaly [id number] Co dical [facility] [address] 2019-11-11 2019-11-11 Outpatient R LAUREL [facility] [id number] Univers 15:00:00 15:00:00 MAIKEL arnold [facility] 2019-09-03 2019-09-03 [facility] [id number] Univers 15:00:00 15:00:00 MARCE [facility] Results This patient has no known results.
[2021-10-01 15:39] LABS: Absolute Lymphocytes (CBC) 1.3 K/uL (0.7-4.9); Hematocrit 43.4 % (39.6-49.0); Lymphocytes % 8.6 % (15.3-44.8); MPV 7.1 fL (7.6-11.3); RBC Red Blood Cell Count 4.83 M/uL (4.33-5.43)
[2021-10-01 15:45] LABS: Protime INR 1.1
[2021-10-01 16:00] LABS: Potassium 4.1 mmol/L (3.5-5.1); Troponin High Sensitivity 6.7 pg/mL (<58.9)
--- NOTE | 2021-10-01 16:28 | ER ---
Nurse's Notes [facility] Name: Audi Alfaro Age: 61 yrs Sex: Male : 1960 Arrival Date: 10/01/2021 Time: 15:07 Bed 15 Private MD: Diagnosis: Syncope Presentation: 10/01 15:00 Chief complaint: EMS states: pt was at a and standing for a long period of time tw2 and passed out but family was able to assist him to a nearby chair. vs stable, blg 132. pt refused tx or iv line stated wanted to wait until he arrived. pt was just discharged from our facility today for skin issues. Coronavirus screen: At this time, the client does not indicate any symptoms associated with coronavirus-19. Ebola Screen: Patient denies travel to an Ebola-affected area in the 21 days before illness onset. Initial Sepsis Screen: Does the patient meet any 2 criteria? No. Patient's initial sepsis screen is negative. Does the patient have a suspected source of infection? No. Patient's initial sepsis screen is negative. Risk Assessment: Do you want to hurt yourself or someone else? Patient reports no desire to harm self or others. Onset of symptoms was October 01, 2021. 15:00 Method Of Arrival: EMS: [facility] tw2 15:00 Acuity: ULYSSES 3 tw2 Triage Assessment: 15:15 General: Appears in no apparent distress. obese, well groomed, Behavior is calm, tw2 cooperative, appropriate for age. Pain: Denies pain. Neuro: Level of Consciousness is awake, alert, obeys commands. Neuro: Reports a syncopal episode. Respiratory: Airway is patent Respiratory effort is even, unlabored, Respiratory pattern is regular, symmetrical. GI: Abdomen is round obese. Derm: dry patches of skin that appears to be eczema all over pts body. pt reports wounds to feet and LE where [facility]. Historical: - Allergies: 15:14 No Known Allergies; tw2 - Home Meds: 15:14 Coreg Oral [Active]; lisinopril Oral [Active]; tw2 - PMHx: 15:14 Hypertensive disorder; Irregular heart rate; tw2 - Immunization history:: Adult Immunizations. - Social history:: Smoking status: . - Family history:: not pertinent. - Hospitalizations: : No recent hospitalization is reported. Screenin:18 Abuse screen: Denies threats or abuse. Nutritional screening: No deficits noted. tw2 Tuberculosis screening: No symptoms or risk factors identified. Fall Risk None identified. Assessment: 17:19 Reassessment: Patient appears in no apparent distress at this time. No changes from tw2 previously documented assessment. Patient and/or family updated on plan of care and expected duration. Pain level reassessed. Patient is alert, oriented x 3, equal unlabored respirations, skin warm/dry/pink. Vital Signs: 15:00 BP 123 / 68; Pulse 72; Resp 17; Pulse Ox 97% on R/A; Weight 117.93 kg (R); Height 6 ft. tw2 0 in. (182.88 cm); 16:07 BP 121 / 65; Pulse 67; Resp 17; Temp 97.9(TE); Pulse Ox 95% on R/A; tw2 17:18 BP 128 / 79; Pulse 74; Resp 22; Pulse Ox 100% on R/A; tw2 15:00 Body Mass Index 35.26 (117.93 kg, 182.88 cm) tw2 ED Course: 15:07 Patient arrived in ED. rn 15:07 Naeem Coronado MD is Attending Physician. rn 15:11 Criss Murguia, SEBASTIAN is Primary Nurse. tw2 15:14 Triage completed. tw2 15:15 Arm band placed on. tw2 15:18 Bed in low position. Call light in reach. Side rails up X2. Client placed on continuous tw2 cardiac and pulse oximetry monitoring. NIBP monitoring applied. furnace door tender on. Pulse ox on. 15:33 Troponin High Sensitivity Sent. mb7 15:33 BNP Sent. mb7 15:33 Basic Metabolic Panel Sent. mb7 15:33 Ptt, Activated Sent. mb7 15:33 CBC with Diff Sent. mb7 15:33 Magnesium Sent. mb7 15:33 Protime (+inr) Sent. mb7 15:33 Inserted saline lock: 20 gauge in left upper arm, using aseptic technique. Blood mb7 collected. 16:10 EKG done, by ED staff, reviewed by Naeem Coronado MD. 5 17:33 No provider procedures requiring assistance completed. IV discontinued, intact, tw2 bleeding controlled, No redness/swelling at site. Pressure dressing applied. Administered Medications: No medications were administered Outcome: 16:28 Discharge ordered by . rn 17:33 Discharged to home via wheelchair, with friend. tw2 17:33 Condition: stable 17:33 Discharge instructions given to patient, friend, Instructed on discharge instructions, follow up and referral plans. Demonstrated understanding of instructions, follow-up care. 17:33 Patient left the ED. tw2 Signatures: Naeem Coronado MD MD rn Wise, Tara, RN RN tw2 Argenis Olson [facility] Michelle Emmanuel [facility] Corrections: (The following items were deleted from the chart) 16:09 16:07 BP 121 / 65; Pulse 67bpm; Resp 17bpm; Pulse Ox 95% RA; tw2 tw2
--- NOTE | 2021-10-01 16:29 | EDPHYS ---
Physician Documentation [facility] Name: Audi Alfaro Age: 61 yrs Sex: Male : 1960 Arrival Date: 10/01/2021 Time: 15:07 Bed 15 Private MD: ED Physician Naeem Coronado HPI: 10/01 15:10 This 61 yrs old Male presents to ER via Unassigned with complaints of syncope. rn 15:10 The patient has experienced syncope, lost consciousness. Onset: The symptoms/episode rn began/occurred just prior to arrival. Duration: This was a single episode. Associated injury: The patient did not suffer any apparent associated injury. Associated signs and symptoms: Pertinent positives: dizziness, lightheadedness, Pertinent negatives: abdominal pain, chest pain, palpitations, seizure, shortness of breath, vertigo, weakness. Current symptoms: Currently, the patient is not experiencing any symptoms. The patient has not experienced similar symptoms in the past. The patient has been recently been admitted at [facility]. Pt at , only hours after discharge from this hospital for cellulitis, was standing for prolonged period of time, felt lightheaded and dizzy, then passed out. Denies focal neurological complaint. Denies chest pain or palpitations. Has had SVT in past, states felt nothing like SVT episodes, and "knows when is in SVT". Feels better and back to baseline without intervention. . Historical: - Allergies: 15:14 No Known Allergies; tw2 - Home Meds: 15:14 Coreg Oral [Active]; lisinopril Oral [Active]; tw2 - PMHx: 15:14 Hypertensive disorder; Irregular heart rate; tw2 - Immunization history:: Adult Immunizations. - Social history:: Smoking status: . - Family history:: not pertinent. - Hospitalizations: : No recent hospitalization is reported. ROS: 15:10 Constitutional: Negative for fever, chills, and weight loss, Eyes: Negative for injury, rn pain, redness, and discharge, Neck: Negative for injury, pain, and swelling, Cardiovascular: Negative for chest pain, palpitations, and edema, Respiratory: Negative for shortness of breath, cough, wheezing, and pleuritic chest pain, Abdomen/GI: Negative for abdominal pain, nausea, vomiting, diarrhea, and constipation, Back: Negative for injury and pain, MS/Extremity: Negative for injury and deformity, Skin: Negative for injury, rash, and discoloration, Neuro: Negative for headache, weakness, numbness, tingling, and seizure. Exam: 15:10 Constitutional: This is a well developed, well nourished patient who is awake, alert, rn and in no acute distress. Head/Face: Normocephalic, atraumatic. Eyes: Periorbital areas with no swelling, redness, or edema. ENT: MMM Cardiovascular: Regular rate and rhythm. No pulse deficits. Respiratory: No increased work of breathing, no retractions or nasal flaring. Abdomen/GI: Soft, non-tender Skin: Warm, dry MS/ Extremity: Pulses equal, no cyanosis. Neuro: Awake and alert, GCS 15, oriented to person, place, time, and situation. Cranial nerves II-XII grossly intact. Motor strength 5/5 in all extremities. Sensory grossly intact. Cerebellar exam normal. Vital Signs: 15:00 BP 123 / 68; Pulse 72; Resp 17; Pulse Ox 97% on R/A; Weight 117.93 kg (R); Height 6 ft. tw2 0 in. (182.88 cm); 16:07 BP 121 / 65; Pulse 67; Resp 17; Temp 97.9(TE); Pulse Ox 95% on R/A; tw2 17:18 BP 128 / 79; Pulse 74; Resp 22; Pulse Ox 100% on R/A; tw2 15:00 Body Mass Index 35.26 (117.93 kg, 182.88 cm) tw2 MDM: 15:07 Patient medically screened. rn 16:25 Differential Diagnosis: cardiac arrhythmia, idiopathic syncope, vasovagal episode, rn dehydration, orthostatic hypotension. Data reviewed: vital signs, nurses notes, lab test result(s), EKG, and as a result, I will discharge patient. Counseling: I had a detailed discussion with the patient and/or guardian regarding: the historical points, exam findings, and any diagnostic results supporting the discharge/admit diagnosis, lab results, the need for outpatient follow up, to return to the emergency department if symptoms worsen or persist or if there are any questions or concerns that arise at home. Response to treatment: the patient's symptoms have resolved after treatment, the patient's condition has returned to base line, the patient is now symptom free, and as a result, I will discharge patient. Special discussion: I discussed with the patient/guardian in detail that at this point there is no indication for admission to the hospital. It is understood, however, that if the symptoms persist or worsen the patient needs to return immediately for re-evaluation. 10/01 15:08 Order name: Basic Metabolic Panel; Complete Time: 16: 10/01 15:08 Order name: CBC with Diff; Complete Time: 16: 10/01 15:08 Order name: Magnesium; Complete Time: 16: rn 10/01 15:08 Order name: Protime (+inr); Complete Time: 16: 10/01 15:08 Order name: Ptt, Activated; Complete Time: 16: 10/01 15:08 Order name: Troponin High Sensitivity; Complete Time: 16: 10/01 15:08 Order name: EKG; Complete Time: 15: 10/01 15:08 Order name: Cardiac monitoring; Complete Time: 15: 10/01 15:08 Order name: EKG - Nurse/Tech; Complete Time: 16: 10/01 15:08 Order name: IV Saline Lock; Complete Time: : 10/01 15:08 Order name: Labs collected and sent; Complete Time: : 10/01 15:08 Order name: NPO; Complete Time: : rn 10/01 15:08 Order name: O2 Per Protocol; Complete Time: 15: 10/01 15:08 Order name: BNP; Complete Time: 16: 10/01 15:08 Order name: O2 Sat Monitoring; Complete Time: 15: rn Administered Medications: No medications were administered Disposition Summary: 10/01/21 16:28 Discharge Ordered Location: Home rn Problem: new rn Symptoms: have improved rn Condition: Stable rn Diagnosis - Syncope rn Followup: rn - With: Private Physician - When: As needed - Reason: Recheck today's complaints, Re-evaluation by your physician Discharge Instructions: - Discharge Summary Sheet rn - Syncope rn Forms: - Medication Reconciliation Form rn - Thank You Letter rn - Antibiotic manager rn - Prescription Opioid Use rn Signatures: Dispatcher [employer] EDMS Coronado, Naeem, MD MD rn Murguia, Criss, RN RN tw2
[2021-10-01 17:40] VITALS: TEMP 97.9
[2021-10-01 17:42] VITALS: BP 128/79; O2SAT 100
--- NOTE | 2021-10-02 07:54 | EKG ---
Test Date: 2021-10-01 Test Time: 16:13:28 Salesman/Owner: MICHAEL MEASUREMENT RESULTS: Intervals: Rate: 67 IN: 178 QRSD: 92 QT: 410 QTc: 433 Mellen: P: 63 IN: 178 QRS: 51 T: 61 INTERPRETIVE STATEMENTS: Normal sinus rhythm Possible Left atrial enlargement Borderline ECG Compared to ECG 09/29/2021 21:26:13 No significant changes Electronically Signed On 10-02-21 07:52:07 CDT by Sandor Moseley
== END 2021-10-01 17:33 | disposition home or self-care (01) ==
LOC: ER 15:02
DX: R55 Syncope and collapse (principal); R42 Dizziness and giddiness; I10 Essential (primary) hypertension
CPT/HCPCS: 36415; 80048; 83735; 83880; 84484; 85025; 85610; 85730; 93005; 99284

== ENCOUNTER 2021-12-21 16:57 | Inpatient (IN) | payer SELFPAY ==
--- OUTSIDE RECORDS SUMMARY | 2021-12-21 17:00 | XMS REPORT | Continuity of Care Document ---
:1960 Author Organization [facility] t Address [address] [place] [address] [address]. [address] [place] [address] Care Team Providers Name Role Phone PCP, PATIENT DOES NOT HAVE A Primary Care Physician Unavaila ble Provider, [facility] Attending Clinician Unavailable Maikel Shoemaker Attending Clinician MAIKEL BARRAGAN Attending Clinician Unavailable MARCE BARDALES Attending Clinician Unavailable Problems Condition Condition Condition Status Onset Resolution Last Treating Co mments Source Name Details Category Date Date Treatment Clinician Date No known No known Disease Unive rs active active ity of problems problems [facility] [place] Allergies, Adverse Reactions, Alerts Allergy Allergy Status Severity Reaction(s) Onset Inactive Treating Comm ents Source Name Type Date Date Clinician NO KNOWN Drug Active Univers ALLERGIE Class ity of S [facility] Social History Social Habit Start Date Stop Date Quantity Comments Source Sex Assigned At Uni versity of [facility] Exposure to SARS-CoV-2 Not sure [facility] [place] (event) [facility] Smoking Status Start Date Stop Date Source Never smoker [facility] Medications Ordered Filled Start Stop Current Ordering Indication Dosage Frequency Signature Comments Components Source Medication Medication Date Date Medication? Clinician (SIG) Name Name amLODIPine 2020-0 Yes 5mg Take 5 mg Un jay 5 mg tablet 7-04 by mouth ity of 20:37: daily. [address] carvediloL 2020-0 Yes 25mg Take 25 mg U nivers 25 mg 7-04 by mouth 2 ity of tablet 20:37: (two) [address] daily with Branch meals. cephALEXin 2020-0 2020- No [id number] 500mg Take 1 Univers 500 mg 11-10 [id number] capsule by ity of capsule 00:00: 04:59 mouth 2 [place] 00 :00 (two) [facility] daily for 10 days. acetaminoph 2019- Yes [id number] 1{tbl} Take 1 Univers en-codeine 4-26 tablet by ity of 300-30 mg 00:00: mouth [place] tablet 00 every 6 Medical (six) Branch hours as needed for Pain (scale 7-10). lisinopril- Yes TAKE 2 Univ ers hydrochloro 2-06 TABLETS BY it y of thiazide 00:00: MOUTH ONCE Davy as 20-12.5 mg 00 DAILY FOR [facility] per tablet 90 DAYS [place] Vital Signs Vital Name Observation Time Observation Value Comments Source Systolic blood 2019-11-11 20:32:00 136 mm[Hg] Univer sity of pressure [facility] Diastolic blood 2019-11-11 20:32:00 85 mm[Hg] [facility] rate 2019-11-11 20:32:00 64 /min [facility] Body temperature 2019-11-11 20:32:00 37 Beatriz [facility] Respiratory rate 2019-11-11 20:32:00 18 /min [facility] Body height 2019-11-11 20:32:00 181.6 cm [facility] Body weight 2019-11-11 20:32:00 137.893 kg [facility] BMI 2019-11-11 20:32:00 41.81 kg/m2 [facility] Oxygen saturation in 2019-11-11 20:32:00 96 /min [facility] Arterial blood by [facility] Pulse oximetry Branch Procedures This patient has no known procedures. Encounters Start End Encounter Admission Attending Care Care Encounter Source Date/Time Date/Time Type Type Clinicians Facility Department ID 2020-07-06 2020-07-06 Outpatient [facility] [id number] Univers 12:30:00 12:30:00 ity [facility] [place] [facility] 2019-11-11 2019-11-11 Urgent Provider, [facility] [id number] Univers 15:29:27 15:49:27 Care [facility] [id number] ity [facility] [id number] Davy as Profalfonso [phone] Ny merna alvarez [address] 2019-11-11 2019-11-11 Outpatient R LAUREL [facility] [id number] Univers 15:00:00 15:00:00 MAIKEL sims [facility] [place] [facility] 2019-09-03 2019-09-03 Outpatient R CATIA, [facility] [id number] Univers 15:00:00 15:00:00 MARCE sims [facility] Results This patient has no known results.
--- NOTE | 2021-12-21 19:48 | RAD REPORT ---
EXAM DESCRIPTION: RAD - Chest Single View - 12/21/2021 7:25 pm CLINICAL HISTORY: pre-op Chest pain. COMPARISON: Chest Single View dated 03/15/2016; CHEST SINGLE VIEW dated 03/22/2011 FINDINGS: Portable technique limits examination quality. Mild interstitial pulmonary edema. The heart is moderately enlarged in size. No displaced fractures. IMPRESSION: Mild CHF.
--- NOTE | 2021-12-21 19:50 | RAD REPORT ---
EXAM DESCRIPTION: RAD - Foot Left 3 View - 12/21/2021 7:25 pm CLINICAL HISTORY: necrosis Pain and swelling COMPARISON: No comparisons FINDINGS: Advanced degenerative changes present involving the first MTP joint. There is soft tissue ulceration marked bony destruction of the distal phalanx of the second toe compatible with osteomyeli tis. Mild soft tissue swelling is evident. Moderate posterior and plantar calcaneal spurs.
[2021-12-21 20:17] LABS: Absolute Lymphocytes (CBC) 1.2 K/uL (0.7-4.9); Hematocrit 42.3 % (39.6-49.0); Lymphocytes % 9.7 % (15.3-44.8); MCV 88.7 fL (80-100); MPV 6.8 fL (7.6-11.3); RBC Red Blood Cell Count 4.77 M/uL (4.33-5.43)
[2021-12-21 20:34] LABS: Albumin 2.9 g/dL (3.4-5.0); Bilirubin Total 0.4 mg/dL (0.2-1.0); Potassium 4.2 mmol/L (3.5-5.1); Protein, Total 7.9 g/dL (6.4-8.2)
[2021-12-21 20:36] LABS: Protime INR 1.04
[2021-12-21] MEDS ORDERED: NA CHLORIDE 0.9% 100 ML ONE (20:39)
[2021-12-21] MEDS ORDERED: CEFEPIME 1 GM/VIAL ONE (20:39)
[2021-12-21] MEDS ORDERED: VANCOMYCIN 1 GM/VIAL ONE (20:39)
[2021-12-21] MEDS ORDERED: NA CHLORIDE 0.9% 250 ML ONE (20:39)
[2021-12-21 20:42] LABS: SARS-CoV-2 Antigen Rapid Res Negative (Negative)
--- NOTE | 2021-12-21 21:00 | RAD REPORT ---
EXAM DESCRIPTION: US - Lower Extremity Artery Uni Ltd - 12/21/2021 8:37 pm CLINICAL HISTORY: toe infection Leg pain COMPARISON: No comparisons FINDINGS: Left lower extremity arterial Doppler was performed. Triphasic waveforms are seen througho ut the left lower extremity arterial system. No significant stenosis or occlusion is evident. IMPRESSION: No significant flow abnormality left lower extremity arterial system.
--- NOTE | 2021-12-21 21:47 | ER ---
Nurse's Notes [facility] Name: Audi Alfaro Age: 61 yrs Sex: Male : 1960 Arrival Date: 12/21/2021 Time: 17:01 Bed 5 Private MD: Diagnosis: Osteomyelitis, Left foot, 2nd toe Presentation: 12/21 18:24 Chief complaint: Patient states: Pt reports 2nd toe on left foot is infected. Toe noted kb3 to be necrotic, great toe is dusky. Pt denies pain. Coronavirus screen: Vaccine status: Patient reports receiving the 2nd dose of the covid vaccine. Client denies travel out of the [place] in the last 14 days. At this time, the client does not indicate any symptoms associated with coronavirus-19. Ebola Screen: Patient negative for fever greater than or equal to 101.5 degrees Fahrenheit, and additional compatible Ebola Virus Disease symptoms Patient denies exposure to infectious person. Patient denies travel to an Ebola-affected area in the 21 days before illness onset. No symptoms or risks identified at this time. Initial Sepsis Screen: Does the patient meet any 2 criteria? No. Patient's initial sepsis screen is negative. Does the patient have a suspected source of infection? Yes: Skin breakdown/wound. Risk Assessment: Do you want to hurt yourself or someone else? Patient reports no desire to harm self or others. Onset of symptoms was December 08, 2021. 18:24 Method Of Arrival: Ambulatory kb3 18:24 Acuity: ULYSSES 3 kb3 Triage Assessment: 18:26 General: Appears in no apparent distress. comfortable, Behavior is calm, cooperative. kb3 Pain: Denies pain. Historical: - Allergies: 18:26 No Known Allergies; kb3 - Home Meds: 18:26 Coreg Oral [Active]; lisinopril Oral [Active]; kb3 - PMHx: 18:26 Hypertensive disorder; Irregular heart rate; kb3 - Immunization history:: Adult Immunizations up to date, Client reports receiving the 2nd dose of the Covid vaccine, Last tetanus immunization: < 5 years ago. - Social history:: Smoking status: Patient denies any tobacco usage or history of. Patient uses alcohol, only on a social basis. street drugs, marijuana. Screenin:08 Abuse screen: Denies threats or abuse. Denies injuries from another. Nutritional kd3 screening: No deficits noted. Tuberculosis screening: No symptoms or risk factors identified. Fall Risk IV access (20 points). Vital Signs: 18:24 BP 168 / 104; Pulse 57; Resp 18; Temp 96.7; Pulse Ox 100% ; Weight 119.75 kg; Height 6 kb3 ft. 0 in. (182.88 cm); Pain 0/10; 20:08 Temp 98.4(O); kd3 12/22 00:15 BP 196 / 114; Pulse 47; Resp 19; Pulse Ox 98% on R/A; kd3 00:54 BP 173 / 101; Pulse 46; Resp 25 S; Pulse Ox 99% on R/A; aa9 12/21 18:24 Body Mass Index 35.80 (119.75 kg, 182.88 cm) kb3 ED Course: 12/21 17:01 Patient arrived in ED. mr 18:26 Triage completed. kb3 18:26 Arm band placed on right wrist. kb3 19:21 Sanjuana Christian, SEBASTIAN is Primary Nurse. kd3 19:25 Octavio Castellon MD is Attending Physician. mh7 19:28 Chest Single View XRAY In Process Unspecified. EDMS 19:28 Foot Left 3 View XRAY In Process Unspecified. EDMS 20:00 Initial lab(s) drawn, by me, sent to lab. First set of blood cultures drawn by me, [facility] RAPID COVID. 20:08 Patient has correct armband on for positive identification. kd3 20:10 No provider procedures requiring assistance completed. kd3 20:15 Inserted saline lock: 20 gauge in right antecubital area, using aseptic technique. 5 Blood collected. 20:16 alarm security or surveillance monitor on. Pulse ox on. NIBP on. 5 20:17 Basic Metabolic Panel Sent. 5 20:17 LFT's Sent. 5 20:17 Magnesium Sent. 5 20:17 NT PRO-BNP Sent. 5 20:17 Troponin HS Sent. 5 20:17 SARS RAPID Sent. 5 20:17 Blood Culture Adult (2) Sent. 5 20:17 CBC with Diff Sent. 5 20:17 CMP Sent. 5 20:17 Lactate Sent. 5 20:17 Protime (+inr) Sent. 5 20:17 Ptt, Activated Sent. mh5 20:39 US LE Artery Uni Ltd In Process Unspecified. EDMN 21:45 Hemant Dawn is Hospitalizing Provider. [facility] 12/22 00:47 Patient admitted, IV remains in place. as6 Administered Medications: 12/21 20:44 Drug: Cefepime 1 grams Route: IVPB; Rate: 200 ml/hr; Infused Over: 30 mins; Site: right kd3 antecubital; 12/22 00:16 Follow up: IV Status: Completed infusion kd3 12/21 21:14 Drug: vancoMYCIN 1 grams Route: IVPB; Infused Over: 2 hrs; Site: right antecubital; kd3 21:14 Follow up: IV Status: Completed infusion 3 12/22 00:15 Drug: hydrALAZINE 10 mg Route: IVP; Site: right antecubital; kd3 00:16 Follow up: Response: No adverse reaction kd3 Medication: 12/21 20:10 VIS not applicable for this client. kd3 Outcome: 21:46 Decision to Hospitalize by Provider. [facility] 12/22 00:47 Admitted to ER Hold. Please see [facility] for further documentation. as6 Condition: stable Instructed on the need for admit. 11:16 Patient left the ED. 1 Signatures: Dispatcher [employer] [facility] Lang Michelle OlsonArgenis 5 Rosales Leahy, SEBASTIAN RN ll1 Octavio Castellon MD MD mh7 Bernard Flaherty RN RN as6 Sanjuana Christian RN RN kd3 Sheridan Clark RN RN aa9 Sylvie Oneill, SEBASTIAN RN kb3
--- NOTE | 2021-12-21 21:47 | EDPHYS ---
Physician Documentation [facility] Name: Audi Alfaro Age: 61 yrs Sex: Male : 1960 Arrival Date: 12/21/2021 Time: 17:01 Bed 5 Private MD: ED Physician Octavio Castellon HPI: 12/21 19:25 This 61 yrs old Male presents to ER via Ambulatory with complaints of Infected toe. mh7 19:25 The patient presents with infection left 2nd toe. The complaints affect the left 2nd mh7 toe. Context: The problem was sustained at an unknown site, resulted from an unknown cause, the patient can fully bear weight, the patient is able to ambulate, without difficulty, Problem is a result from a previous injury: No. Onset: The symptoms/episode began/occurred 3 week(s) ago. Modifying factors: The symptoms are alleviated by nothing. the symptoms are aggravated by nothing. Associated signs and symptoms: Pertinent negatives calf tenderness, fever, nausea, numbness, rash, swelling, tingling, vomiting, warmth, weakness. Treatment prior to arrival includes: no previous treatment. Severity of symptoms: At their worst the symptoms were moderate, 4 day(s) ago, in the emergency department the symptoms are unchanged. Historical: - Allergies: 18:26 No Known Allergies; kb3 - Home Meds: 18:26 Coreg Oral [Active]; lisinopril Oral [Active]; kb3 - PMHx: 18:26 Hypertensive disorder; Irregular heart rate; kb3 - Immunization history:: Adult Immunizations up to date, Client reports receiving the 2nd dose of the Covid vaccine, Last tetanus immunization: < 5 years ago. - Social history:: Smoking status: Patient denies any tobacco usage or history of. Patient uses alcohol, only on a social basis. street drugs, marijuana. ROS: 19:25 Constitutional: Negative for fever, chills, and weight loss, Eyes: Negative for injury, mh7 pain, redness, and discharge, ENT: Negative for injury, pain, and discharge, Neck: Negative for injury, pain, and swelling, Cardiovascular: Negative for chest pain, palpitations, and edema, Respiratory: Negative for shortness of breath, cough, wheezing, and pleuritic chest pain, Abdomen/GI: Negative for abdominal pain, nausea, vomiting, diarrhea, and constipation, Back: Negative for injury and pain, : Negative for injury, bleeding, discharge, and swelling, Skin: Negative for injury, rash, and discoloration, Neuro: Negative for headache, weakness, numbness, tingling, and seizure, Psych: Negative for depression, anxiety, suicide ideation, homicidal ideation, and hallucinations, Allergy/Immunology: Negative for hives, rash, and allergies, Endocrine: Negative for neck swelling, polydipsia, polyuria, polyphagia, and marked weight changes, Hematologic/Lymphatic: Negative for swollen nodes, abnormal bleeding, and unusual bruising. Exam: 19:25 Constitutional: This is a well developed, well nourished patient who is awake, alert, mh7 and in no acute distress. Head/Face: Normocephalic, atraumatic. Eyes: Pupils equal round and reactive to light, extra-ocular motions intact. Lids and lashes normal. Conjunctiva and sclera are non-icteric and not injected. Cornea within normal limits. Periorbital areas with no swelling, redness, or edema. Neck: Trachea midline, no thyromegaly or masses palpated, and no cervical lymphadenopathy. Supple, full range of motion without nuchal rigidity, or vertebral point tenderness. No Meningismus. Chest/axilla: Normal chest wall appearance and motion. Nontender with no deformity. No lesions are appreciated. Cardiovascular: Regular rate and rhythm with a normal S1 and S2. No gallops, murmurs, or rubs. Normal PMI, no JVD. No pulse deficits. Respiratory: Lungs have equal breath sounds bilaterally, clear to auscultation and percussion. No rales, rhonchi or wheezes noted. No increased work of breathing, no retractions or nasal flaring. Abdomen/GI: Soft, non-tender, with normal bowel sounds. No distension or tympany. No guarding or rebound. No evidence of tenderness throughout. Back: No spinal tenderness. No costovertebral tenderness. Full range of motion. Neuro: Awake and alert, GCS 15, oriented to person, place, time, and situation. Cranial nerves II-XII grossly intact. Motor strength 5/5 in all extremities. Sensory grossly intact. Cerebellar exam normal. Normal gait. Psych: Awake, alert, with orientation to person, place and time. Behavior, mood, and affect are within normal limits. 19:25 Skin: Warm, dry with normal turgor. Normal color with no rashes, no lesions, and no evidence of cellulitis. 19:25 Musculoskeletal/extremity: Extremities: noted in the left foot 2nd toe: black, gangrenous appering , ROM: intact in all extremities, Circulation is intact in all extremities. Sensation intact. Compartment Syndrome exam of affected extremity: is normal. no pain, no numbness, no tingling, no sensation deficit, no palor, no weak pulses, Joints: All joints appear normal with full range of motion. Weight bearing: able to fully bear weight, without difficulty, Tendon exam: specific tendon testing normal through active and passive range of motion Vital Signs: 18:24 BP 168 / 104; Pulse 57; Resp 18; Temp 96.7; Pulse Ox 100% ; Weight 119.75 kg; Height 6 kb3 ft. 0 in. (182.88 cm); Pain 0/10; 20:08 Temp 98.4(O); kd3 12/22 00:15 BP 196 / 114; Pulse 47; Resp 19; Pulse Ox 98% on R/A; kd3 00:54 BP 173 / 101; Pulse 46; Resp 25 S; Pulse Ox 99% on R/A; aa9 12/21 18:24 Body Mass Index 35.80 (119.75 kg, 182.88 cm) kb3 MDM: 12/21 21:44 Differential diagnosis: open fracture, closed fracture, osteomyelitis, gangrene. Data [facility] reviewed: vital signs, nurses notes, lab test result(s), cardiac enzymes, CBC, electrolytes, urinalysis, EKG, radiologic studies, plain films, ultrasound. Data interpreted: Pulse oximetry: on room air is 100 %. Interpretation: normal. Counseling: I had a detailed discussion with the patient and/or guardian regarding: the historical points, exam findings, and any diagnostic results supporting the discharge/admit diagnosis, the presence of at least one elevated blood pressure reading (>120/80) during this emergency department visit, lab results, radiology results, the need for further work-up and treatment in the hospital. Response to treatment: the patient's symptoms have mildly improved after treatment. 21:46 Patient medically screened. [facility] 12/21 19:08 Order name: Blood Culture Adult (2) [facility] 12/21 19:08 Order name: CBC with Diff; Complete Time: 20:40 snw 12/21 19:08 Order name: CMP; Complete Time: 20:40 snw 12/21 19:08 Order name: Lactate; Complete Time: 20:40 snw 12/21 19:08 Order name: Protime (+inr); Complete Time: 20:40 snw 12/21 19:08 Order name: Ptt, Activated; Complete Time: 20:40 snw 12/21 19:08 Order name: SARS RAPID; Complete Time: 21:18 snw 12/21 19:36 Order name: Basic Metabolic Panel [facility] 12/21 19:36 Order name: LFT's [facility] 12/21 19:36 Order name: Magnesium [facility] 12/21 19:36 Order name: NT PRO-BNP [facility] 12/21 19:36 Order name: Troponin HS [facility] 12/21 20:53 Order name: Glucose, Ancillary Testing; Complete Time: 21:18 EDMS 12/22 03:11 Order name: CBC with Automated Diff [facility] 12/21 19:08 Order name: Chest Single View XRAY; Complete Time: 20:17 snw 12/21 19:08 Order name: Accucheck; Complete Time: 20:44 snw 12/21 19:08 Order name: Cardiac monitoring; Complete Time: 20:17 snw 12/21 19:08 Order name: EKG - Nurse/Tech; Complete Time: 20:17 snw 12/21 19:08 Order name: IV Saline Lock - Large Bore; Complete Time: 20:24 snw 12/21 19:08 Order name: Labs collected and sent; Complete Time: 20:17 snw 12/21 19:08 Order name: O2 Per Protocol; Complete Time: 20:24 snw 12/21 19:09 Order name: Foot Left 3 View XRAY; Complete Time: 20:17 snw 12/21 19:36 Order name: EKG; Complete Time: 19:43 7 12/21 19:36 Order name: US LE Artery [employer]; Complete Time: 21:18 7 12/22 03:21 Order name: Comprehensive Metabolic Panel EDMS 12/22 03:35 Order name: Hemoglobin A1c EDMS 12/22 08:58 Order name: MRI EDWY 12/21 19:08 Order name: O2 Sat Monitoring; Complete Time: 20:24 snw 12/21 19:36 Order name: IV Saline Lock; Complete Time: 20:14 [facility] Administered Medications: 20:44 Drug: Cefepime 1 grams Route: IVPB; Rate: 200 ml/hr; Infused Over: 30 mins; Site: right kd3 antecubital; 12/22 00:16 Follow up: IV Status: Completed infusion 3 12/21 21:14 Drug: vancoMYCIN 1 grams Route: IVPB; Infused Over: 2 hrs; Site: right antecubital; 3 21:14 Follow up: IV Status: Completed infusion 3 12/22 00:15 Drug: hydrALAZINE 10 mg Route: IVP; Site: right antecubital; 3 00:16 Follow up: Response: No adverse reaction 3 Disposition Summary: 12/21/21 21:46 Hospitalization Ordered Hospitalization Status: Inpatient Admission [facility] Provider: Hemant Dawn Condition: Stable [facility] Problem: new [facility] Symptoms: have improved [facility] Bed/Room Type: Standard [facility] Location: [facility] ER HOLD(12/21/21 21:53) Room Assignment: ERHOLD-(12/21/21 21:53) Diagnosis - Osteomyelitis, Left foot, 2nd toe [facility] Forms: - Medication Reconciliation Form [facility] - SBAR form [facility] Signatures: Dispatcher [employer] Tamiko Steve RN RN Brigida Scott, DENIER CONTROL OPERATOR-C DENIER CONTROL OPERATOR-Csnw Rebel Mccurdy DENIER CONTROL OPERATOR-C DENIER CONTROL OPERATOR-Cla1 Octavio Castellon MD MD [facility] Sanjuana Christian RN RN kd3 Sylvie Oneill RN RN kb3 Corrections: (The following items were deleted from the chart) 12/21 21:53 21:46 Telemetry/MedSurg (Inpatient) [facility] 21:53 21:46 [facility]
--- NOTE | 2021-12-21 21:59 | P.HP ---
Certification for Inpatient Patient admitted to: Inpatient With expected LOS: >2 Midnights Patient will require the following post-hospital care: None Practitioner: I am a practitioner with admitting privileges, knowledge of patient current condition, hospital course, and medical plan of care. Services: Services provided to patient in accordance with Admission requirements found in Title 42 Section 412.3 of the Code of Federal Regulations Patient History Date of Service: 12/21/21 Reason for admission: Osteomyelitis History of Present Illness: 61-year-old male with history of hypertension, eczema presents to the emergency department for wound to his left second toe, he reports it started out swollen and red a few weeks ago and eventually progressed to this point. Necrotic tissue present to the distal tip of the left second toe with erythema proximal to necrotic tissue. He was evaluated in the emergency department his labs are significant for leukocytosis with white blood cell count of 12.4 no other SIRS criteria met chest x-ray shows mild CHF, x-ray of the left foot shows advanced degenerative changes present involving the first MTP joint, soft tissue ulceration marked bony destruction of the distal phalanx of the second toe compatible with osteomyelitis, mild soft tissue swelling is evident moderate posterior and plantar calcaneal spurs. Patient was given IV vancomycin/cefepime in the ER, additionally an arterial Doppler was performed of the left lower extremity which showed no significant flow abnormality in the left lower ext remity arterial system. ED prior wishes to admit for further valuation and management of suspected osteomyelitis. Allergies No Known Allergies Allergy (Verified 09/30/21 02:08) Home Medications: Carvedilol 25 mg PO DAILY 03/15/16 Lisinopril/Hydrochlorothiazide [Lisinopril-Hctz 20-12.5 mg Tab] 2 tab PO DAILY 03/15/16 Dupilumab [Dupixent Syringe] 300 mg SQ SEECOM 09/30/21 Amoxicillin/Potassium Clav [Augmentin 500-125 Tablet] 1 each PO BID #14 tablet 10/01/21 Clobetasol [Temovate Cream 0.05%*] 1 appl TOP BID #3 tube 10/01/21 Diphenhydramine [Benadryl*] 25 mg PO Q12H PRN #6 tab 10/01/21 Levofloxacin [Levaquin] 500 mg PO DAILY #10 tablet 10/01/21 - Past Medical/Surgical History Diabetic: No -: SVT -: Hypertension -: Eczema -: appendectomy (7 years old) -: ear tubes Psychosocial/ Personal History: Patient lives at home with family - Family History Mother -: Heart disease, Hypertension Father -: Hypertension, Diabetes - Social History Smoking Status: Never smoker Alcohol use: Yes CD- Drugs: No Caffeine use: No Place of Residence: Home Review of Systems 10-point ROS is otherwise unremarkable Musculoskeletal: As per HPI Integumentary: As per HPI Physical Examination - Physical Exam General: Alert, In no apparent distress, Obese HEENT: Atraumatic, PERRLA, Mucous membr. moist/pink, EOMI, Sclerae nonicteric Neck: Supple, 2+ carotid pulse no bruit, No LAD, Without JVD or thyroid abnormality Respiratory: Clear to auscultation bilaterally, Normal air movement Cardiovascular: Regular rate/rhythm, Normal S1 S2 Gastrointestinal: Normal bowel sounds, No tenderness Musculoskeletal: No tenderness Integumentary: No rashes, Other (Necrotic wound to the left second toe) Neurological: Normal speech, Normal strength at 5/5 x4 extr, Normal tone, Normal affect - Studies Laboratory Data (last 24 hrs) 12/21/21 20:00: PT 11.5, INR 1.04, APTT 34.1 12/21/21 20:00: Sodium 138, Potassium 4.2, BUN 15, Creatinine 0.88, Glucose 118 H, Total Bilirubin 0.4, AST 30, ALT 60, Alkaline Phosphatase 54 12/21/21 20:00: WBC 12.4 H, Hgb 14.3, Hct 42.3, Plt Count 275 Assessment and Plan - Plan Assessment: Suspected osteomyelitis distal phalanx of the second toe Hypertension Plan: Suspected osteomyelitis distal phalanx of the second toe: Blood cultures obtained, 1 out of 4 SIRS criteria present with leukocytosis not currently septic. Covered with broad-spectrum antibiotics vancomycin/cefepime. Surgical consult in place will obtain MRI to further evaluate. Patient not a known diabetic, will obtain A1c arterial ultrasound performed with no significant PAD detected. Infection possibly related to chronic skin changes with eczema. Hypertension: Continue home medications once verified. DVT PPX: SCD Code status: Full Discharge Plan: Home Plan to discharge in: 72 Hours - Advance Directives Does patient have a Living Will: No Does patient have a Durable POA for Healthcare: No - Code Status/Comfort Care Code Status Assessed: Yes (Full code) Critical Care: No Time Spent Managing Pts Care (In Minutes): 70
[2021-12-21] MEDS: D5.45NS W/KCL 20MEQ 1,000 ML IV SCH (23:50)
[2021-12-21] MEDS ORDERED: VANCOMYCIN 1 GM in NA CHLORIDE 0.9% 250 ML IVPB SCH (23:50)
[2021-12-21] MEDS ORDERED: ONDANSETRON 4 MG/2 ML VIAL IV PRN (23:50)
[2021-12-22] MEDS ORDERED: D5.45NS W/KCL 20MEQ 1,000 ML IV ONE (00:07)
[2021-12-22] MEDS ORDERED: NA CHLORIDE 0.9% 250 ML ONE ×2 (00:07→09:31)
[2021-12-22] MEDS ORDERED: VANCOMYCIN 1 GM/VIAL ONE (00:07)
[2021-12-22 00:09] LABS: Albumin 2.6 g/dL (3.4-5.0); Bilirubin Direct 0.1 mg/dL (0-0.2); Bilirubin Total 0.4 mg/dL (0.2-1.0); Magnesium 2.2 mg/dL (1.8-2.4); Potassium 4.5 mmol/L (3.5-5.1); Protein, Total 7.4 g/dL (6.4-8.2); Troponin High Sensitivity 6.6 pg/mL (<58.9)
[2021-12-22] MEDS ORDERED: HYDRALAZINE HCL 20 MG/ML VIAL ONE (00:18)
[2021-12-22 00:48] VITALS: BMI 35.8
[2021-12-22] MEDS ORDERED: VANCOMYCIN 1 GM in NA CHLORIDE 0.9% 250 ML IVPB ONE (01:00)
[2021-12-22 03:07] LABS: Absolute Lymphocytes (CBC) 2.1 K/uL (0.7-4.9); Lymphocytes % 19.5 % (15.3-44.8); MCV 88.3 fL (80-100); MPV 7.1 fL (7.6-11.3); RBC Red Blood Cell Count 4.42 M/uL (4.33-5.43)
[2021-12-22 03:20] LABS: Albumin 2.6 g/dL (3.4-5.0); Bilirubin Total 0.5 mg/dL (0.2-1.0); Potassium 4.2 mmol/L (3.5-5.1); Protein, Total 7.3 g/dL (6.4-8.2)
--- NOTE | 2021-12-22 08:57 | RAD REPORT ---
EXAM DESCRIPTION: MRI - Foot Left Wo Cont - 12/22/2021 7:26 am CLINICAL HISTORY: eval for osteo Pain, swelling COMPARISON: No comparisons FINDINGS: Significant abnormal soft tissue thickening is seen particularly involving the second toe. The distal of phalanx of the second toe is not visualized and likely completely eroded. There is irr egular soft tissue thickening and ulceration of the as distal soft tissues of the second toe. No soft tissue mass or hematoma. No fracture or dislocation. IMPRESSION: Moderate osteomyelitis of the second toe is present. Distal phalanx of the second toe ap pears completely eroded.
[2021-12-22] MEDS ORDERED: CEFEPIME 1 GM in NA CHLORIDE 0.9% 100 ML IV SCH (09:00)
[2021-12-22] MEDS ORDERED: CEFEPIME 1 GM/VIAL ONE (09:31)
[2021-12-22] MEDS ORDERED: NA CHLORIDE 0.9% 1,000 ML ONE (11:19)
--- NOTE | 2021-12-22 11:33 | CON ---
Date of Consultation: 12/22/2021 Reason For Service: Gangrene of the left second toe with cellulitis of the foot and leg. History Of Present Illness: This is the case of years old patient, known by us since reji ral months ago the patient diagnosed with cellulitis of the left leg, found to have also some changes of the left fifth toe. At that moment, he did not want anything to be done or any amputation. He w as advised to follow with his medical doctors. Now comes today with once again redness of the foot, redness of the leg, and also gangrene and foul smelling coming from the second toe on the left side. He denies any trauma. Allergies: NONE. Medications: Reviewed including lisinopril, Augmentin, Benadryl, and Levaquin. Past Medical History: SVT, hypertension, eczema. Past Surgical History: Surgeries include appendectomy when he was 7 years old and also . Family History: Includes heart disease, hypertension, diabetes. Social History: He does not smoke. He drinks alcohol occasionally. The patient was advised the imp ortance of cessation. Review of Systems: See H and P. Physical Examination: General: The patient is awake, alert. HEENT: Pupils are equal and reactive. Anicteric. Neck: Supple. Chest: Clear. Abdomen: Soft and depressible. Extremities: The patient has cellulitis of the left lower extremity, lower leg, foot, redness. No f luctuance present and the patient has wet gangrene of the left second toe with foul smelling coming f rom it and black necrotic tissue with neuropathy in that area. Dorsalis pedis pulses still present, although diminished. Laboratory Data: X-ray of the left foot shows advanced degenerative changes present in the first MTP joint, soft tissue bony destruction of the distal phalanx of the second toe. Doppler study as per Zulema Bahena, no significant flow abnormality in the left lower extremity. 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 Cellulitis of the foot and also leg area. He understands as explained before the importance of looking for medical intervention of this toe, I believe this is t he 1 of the source of infection of his leg and if he does not control this and follow doctor's recomm endations, he may bleed into a leg gangrene and losing his leg too. So, we recommend right now to do an emergent amputation of left gangrenous second toe. We are going to leave that area to close by s econdary intention, continue the antibiotics. The patient was booked in OR. The patient agreed and he wants the toe removed. PAM/ITZ Voice ID: [id number] Report ID: [id number]
[2021-12-22] MEDS ORDERED: propofoL 200 MG/20 ML VIAL IV ONE (11:48)
[2021-12-22] MEDS ORDERED: LIDOCAINE 1% MPF 5 ML VIAL ONE (11:57)
[2021-12-22] MEDS ORDERED: FENTANYL CITR 100 MCG/2 ML ONE (11:57)
[2021-12-22] MEDS ORDERED: MIDAZOLAM HCL 2 MG/2 ML INJ ONE (11:57)
[2021-12-22] MEDS ORDERED: VANCOMYCIN 2 GM in NA CHLORIDE 0.9% 500 ML IVPB SCH (12:00)
[2021-12-22] MEDS: VANCOMYCIN 1.5 GM in NA CHLORIDE 0.9% 500 ML IVPB SCH (12:03)
[2021-12-22] MEDS: BUPIVACAINE 0.5% PF 10 ML VIAL ONE ×2 (12:25→12:43)
[2021-12-22] MEDS ORDERED: KETOROLAC 30 MG/ML INJ ONE (12:52)
[2021-12-22] MEDS ORDERED: ONDANSETRON 4 MG/2 ML VIAL ONE (13:00)
--- NOTE | 2021-12-22 13:07 | P.BOP ---
Preoperative diagnosis: let second toe wet gangrene with foot and leg cellulitis, osteomyelitis Postoperative diagnosis: same Primary procedure: LEft second toe transmet amputation Estimated blood loss: <10cc Specimen: toe Findings: gangrene with destructive osteomyelitis Anesthesia: General Complications: None Drain(s): Other Transferred to: Recovery Room Condition: Good
[2021-12-22] MEDS: HYDROMORPHONE HCL 1 MG/ML INJ ONE ×2 (15:00→15:05)
--- NOTE | 2021-12-22 16:15 | P.PN ---
Subjective Date of Service: 12/22/21 Chief Complaint: Osteomyelitis No new complaint. Status post left second toe transmetatarsal amputation. Physical Examination - Vital Signs Temperature: 96.8 F Blood Pressure: 139/86 Pulse: 55 Respirations: 18 Pulse Ox (%): 100 - Studies Laboratory Data (last 24 hrs) 12/21/21 20:00: PT 11.5, INR 1.04, APTT 34.1 12/21/21 20:00: Sodium 138, Potassium 4.2, BUN 15, Creatinine 0.88, Glucose 118 H, Total Bilirubin 0.4, AST 30, ALT 60, Alkaline Phosphatase 54 12/21/21 20:00: WBC 12.4 H, Hgb 14.3, Hct 42.3, Plt Count 275 Assessment And Plan - Current Problems (Diagnosis) (1) Gangrene of toe of left foot Current Visit: Yes Status: Acute (2) Acute osteomyelitis of phalanx of left foot Current Visit: Yes Status: Acute (3) Hypertension Current Visit: Yes Status: Acute - Plan Physical Exam General: Alert, In no apparent distress, Obese Neck: Supple, Without JVD. Respiratory: Clear to auscultation bilaterally, Normal air movement Cardiovascular: Regular rate/rhythm, Normal S1 S2. 2+ dorsalis pedis pulse bilateral. Gastrointestinal: Normal bowel sounds, No tenderness Musculoskeletal: Gangrene distal phalanx of left second toe. Integumentary: No rashes. Neurological: Normal strength at 5/5 x4 extr. Plan: Continue antibiotics. Follow blood cultures. Confirmed with general surgery regarding possible remnant devitalized tissue to importer or exporter duration of antibiotics. Pain management as needed. Local wound care. Continue with home medications.
[2021-12-22] MEDS: D5.45NS W/KCL 20MEQ 1,000 ML IV SCH ×2 (16:17→21:00)
--- NOTE | 2021-12-22 20:39 | OP ---
Date of Procedure: 12/22/2021 Surgeon: Christopher Olson MD Preoperative Diagnosis: Left second toe wet gangrene with foot and leg cellulitis and destructive os teomyelitis. Postoperative Diagnosis: Left second toe wet gangrene with foot and leg cellulitis and destructive o steomyelitis. Procedure: Left second toe transmetatarsal amputation. Estimated Blood Loss: Less than 10 mL. Specimen: Toe. Findings: Gangrenous toe with destructive osteomyelitis of the second. Anesthesia: General. Indication: This is the case of a 61-year-old patient, who comes to us with foul smelling, wet gangr erika of the left second toe with destructive osteomyelitis. The patient was advised to follow with th is, but this toe has hair and has some other products there, like has not been cleaned. We advised h im the importance in the future to take care of his feet and clean his feet since maybe this time the second toe, but then may be some other ones in the future if he is not careful. He may will be more careful in the future. He was advised the importance of using special shoes that fit properly. The area of concern was marked by me and the patient in the holding room. The benefits, alternatives, a nd risks of amputation were fully explained, which include, but not limited to infection, bleeding, d amage to adjacent structures, nonhealing wound, progression of the gangrene, NC and even . He a lso understands this may not relieve any symptoms. He may need packing and he might need more than o ne surgical intervention. He understood, signed a consent. Procedure In Detail: The patient was emergently brought to the operating room, placed in supine posi tion. Anesthesia was done without complication. The left foot was prepped and draped in the usual s terile fashion. A time-out was called. We made an incision in the base of the toe up to the metatar sophalangeal joint. The head of the metatarsal area has to be removed too. Once we did transection with a bone cutter, we proceeded to remove the metatarsal head and the second toe. Due to the diseas e and infection in that area, I believe it is better to leave it close by secondary intention. The a juan was packed with iodoform packing. Sponge count, instrument counts correct. Hemostasis was obtai cresencio before closure. Area was covered with sterile dressings. The patient was sent to recovery in st able condition. PAM/ITZ Voice ID: [id number] Report ID: [id number]
[2021-12-22] MEDS: CEFEPIME 2 GM in NA CHLORIDE 0.9% 100 ML IV SCH (21:00)
--- NOTE | 2021-12-22 21:06 | P.PN ---
Date of Service: 12/23/21 Subjective: no acute events overnight having some discomfort at amputation site otherwise doing ok ROS: 10 point ROS as noted above, otherwise negative Physical Exam: Gen: NAD, AOx3 HEENT: normal conjunctiva, sclera anicteric CV: regular rate & rhythm, no edema Pulm: non-labored respirations, clear bilaterally Abd: soft, non-tender, non-distended MSK: dressing in place on left foot; c/d/i Neuro: normal speech, normal affect, str 5/5 x4 extremities vitals reviewed Problem List Left 2nd toe gangrene with acute osteomyelitis, now s/p amputation (12/22) HTN continue empiric IV antibiotics: cefepime / vanc s/p amputation on 12/[address] Olson recommends 2 postop days of IV Antibiotics, transition to PO afterwards local wound care per surgery tolerating PO, DC IVF pain medication as needed continue home medications anti-hypertensives restarted, BP improving VTE: lovenox Dispo: home, ~2 days Time Spent Managing Pts Care (In Minutes): 35
[2021-12-23] MEDS: MORPHINE 4 MG/ML SYR IV PRN ×3 (00:02→19:48)
[2021-12-23] MEDS: VANCOMYCIN 1.5 GM in NA CHLORIDE 0.9% 500 ML IVPB SCH ×2 (00:07→13:57)
[2021-12-23 03:44] LABS: Absolute Lymphocytes (CBC) 1.9 K/uL (0.7-4.9); Hematocrit 40.2 % (39.6-49.0); Lymphocytes % 18.3 % (15.3-44.8); MCV 88.3 fL (80-100); RBC Red Blood Cell Count 4.55 M/uL (4.33-5.43)
[2021-12-23 04:12] LABS: Albumin 2.5 g/dL (3.4-5.0); Bilirubin Total 0.5 mg/dL (0.2-1.0); Potassium 4.2 mmol/L (3.5-5.1)
[2021-12-23] MEDS: D5.45NS W/KCL 20MEQ 1,000 ML IV SCH (05:04)
[2021-12-23] MEDS: CEFEPIME 2 GM in NA CHLORIDE 0.9% 100 ML IV SCH ×2 (07:37→19:47)
[2021-12-23] MEDS: lisinopriL 20 MG TAB PO SCH (07:38)
[2021-12-23] MEDS: hydroCHLOROthiazide 25 MG TAB PO SCH (07:39)
[2021-12-23] MEDS: carvediloL 25 MG TAB PO SCH (07:39)
--- NOTE | 2021-12-23 08:18 | EKG ---
Test Date: 2021-12-21 Test Time: 20:16:42 Anesthesia Attending: LAURIE MEASUREMENT RESULTS: Intervals: Rate: 53 ME: 184 QRSD: 84 QT: 448 QTc: 420 [place]: P: 56 ME: 184 QRS: 45 T: 59 INTERPRETIVE STATEMENTS: Sinus bradycardia Otherwise normal ECG Compared to ECG 10/01/2021 16:13:28 Sinus rhythm no longer present Electronically Signed On 12-23-21 08:11:42 CDT by Sandor Moseley
[2021-12-23] MEDS: ENOXAPARIN 40 MG/0.4 ML SQ SCH (17:36)
[2021-12-23] MEDS: HYDRALAZINE HCL 20 MG/ML VIAL IV PRN (18:10)
[2021-12-23] MEDS: HYDROCODONE/APAP 5/325 MG TAB PO PRN (22:15)
[2021-12-24] MEDS: VANCOMYCIN 1.5 GM in NA CHLORIDE 0.9% 500 ML IVPB SCH ×2 (00:16→12:29)
[2021-12-24] MEDS: HYDRALAZINE HCL 20 MG/ML VIAL IV PRN ×2 (00:23→13:12)
[2021-12-24 03:50] LABS: Absolute Lymphocytes (CBC) 1.5 K/uL (0.7-4.9); Hematocrit 40.1 % (39.6-49.0); Lymphocytes % 16.2 % (15.3-44.8); MCV 87.9 fL (80-100); RBC Red Blood Cell Count 4.56 M/uL (4.33-5.43)
[2021-12-24 04:12] LABS: Albumin 2.3 g/dL (3.4-5.0); Bilirubin Total 0.6 mg/dL (0.2-1.0); Potassium 3.4 mmol/L (3.5-5.1); Protein, Total 6.9 g/dL (6.4-8.2)
[2021-12-24] MEDS ORDERED: POTASSIUM CL SA 10 MEQ TAB PO ONE (04:22)
--- NOTE | 2021-12-24 06:09 | P.PN ---
Date of Service: 12/24/21 Subjective: no acute events overnight blood culture 1/4 gram+ rods intermittent pain at foot, otherwise doing ok ROS: 10 point ROS as noted above, otherwise negative Physical Exam: Gen: NAD, AOx3 HEENT: normal conjunctiva, sclera anicteric CV: regular rate & rhythm, no edema Pulm: non-labored respirations, clear bilaterally Abd: soft, non-tender, non-distended MSK: dressing in place on left foot; mild serosanguinous drainage noted Integumentary: R lateral lower extremity - superficial abrasions Neuro: normal speech, normal affect, str 5/5 x4 extremities vitals reviewed Problem List Left 2nd toe gangrene with acute osteomyelitis, now s/p amputation (12/22) HTN continue empiric IV antibiotics: cefepime / vanc s/p amputation on 12/[address] Olson recommends 2 postop days of IV Antibiotics, transition to PO afterwards remains afebrile blood culture growing 1/4 gram + rods; possible contaminant, ID consulted local wound care per surgery tolerating PO pain medication as needed continue home medications anti-hypertensives restarted, added norvasc VTE: lovenox Dispo: home, ~2 days Time Spent Managing Pts Care (In Minutes): 35
[2021-12-24] MEDS ORDERED: AMLODIPINE 5 MG TAB PO SCH (09:00)
[2021-12-24] MEDS: CEFEPIME 2 GM in NA CHLORIDE 0.9% 100 ML IV SCH ×2 (10:45→21:20)
[2021-12-24] MEDS: carvediloL 25 MG TAB PO SCH (10:46)
[2021-12-24] MEDS: hydroCHLOROthiazide 25 MG TAB PO SCH (10:47)
[2021-12-24] MEDS: lisinopriL 20 MG TAB PO SCH (10:48)
[2021-12-24] MEDS ORDERED: NA CHLORIDE 0.9% 100 ML ONE (10:52)
--- NOTE | 2021-12-24 12:28 | CON ---
History Of Present Illness: This is a 61-year-old male. I was consulted for left foot second toe os teomyelitis, status post amputation. The patient also has erythematous changes and redness to the ri ght leg as described scraped area to the right leg. The patient is currently on IV antibiotic, vanco mycin, and cefepime. Denies any headache, nausea, vomiting, chest pain, abdominal pain, constipation , or diarrhea. Past Medical History: SVT, hypertension, eczema, appendectomy. Social History: Tobacco negative. Alcohol negative. Family History: Noncontributory. Medications: Vancomycin and cefepime. See MAR for other medications. Allergies: NO KNOWN DRUG ALLERGIES. Review of Systems: A 10-point review was performed. Physical Examination: General: This is a 61-year-old male, sitting in bed, not in any acute cardiopulmonary distress. Vital Signs: Temperature 97.6, pulse 59, respirations 16, blood pressure 160/108. HEENT: Unremarkable. Neck: Supple. Lungs: Basal crackles. Heart: S1, S2. Regular. Abdomen: Soft, nontender. Bowel sounds present. Extremity: 2+ edema with erythematous changes on both lower extremities, left foot second toe amputa tion site noted. No redness. No swelling in the surrounding area. Laboratory Data: Shows WBC 9.5, hemoglobin 13.8, platelets 283. Chemistry shows sodium 138, potassi um 3.4, chloride 105, bicarb 26, BUN 11, creatinine 0.7, glucose 112. Albumin level is 2.3. Assessment And Plan: Osteomyelitis of left second toe, status post amputation. The patient is curre ntly on IV antibiotic, can be switched to oral. If the patient continues to do well, I will plan reg arding the right leg with possible cellulitis, consider giving Cipro and doxycycline on discharge. A lso recommend to apply Silvadene to the right leg wound for open wound area and petroleum for the dry skin. Continue supportive care. Keep leg elevated. Consider getting a front offloading boots and walker for the patient before discharge. We will follow the patient closely. Thank you Dr. Coronado for consult. NF/MODL Voice ID: [id number] Report ID: [id number]
[2021-12-24] MEDS ORDERED: POTASSIUM 25 MEQ EFFERV TAB PO ONE (13:59)
[2021-12-24] MEDS: ENOXAPARIN 40 MG/0.4 ML SQ SCH (16:42)
[2021-12-25] MEDS: VANCOMYCIN 1.5 GM in NA CHLORIDE 0.9% 500 ML IVPB SCH ×3 (00:02→23:33)
[2021-12-25] MEDS: HYDRALAZINE HCL 20 MG/ML VIAL IV PRN (04:18)
--- NOTE | 2021-12-25 06:26 | P.PN ---
Date of Service: 12/25/21 Subjective: no acute events overnight no new symptoms/complaints afebrile ROS: 10 point ROS as noted above, otherwise negative Physical Exam: Gen: NAD, AOx3 HEENT: normal conjunctiva, sclera anicteric CV: regular rate & rhythm, no edema Pulm: non-labored respirations, clear bilaterally MSK: dressing in place on left foot; mild serosanguinous drainage noted Integumentary: R lateral lower extremity - superficial abrasions, R great toe: distal superficial laceration, no surrounding erythema Neuro: normal speech, normal affect, str 5/5 x4 extremities vitals reviewed Problem List Left 2nd toe gangrene with acute osteomyelitis, now s/p amputation (12/22) HTN continue empiric IV antibiotics: cefepime / vanc s/p amputation on 12/[address] Olson remains afebrile blood culture growing 1/4 gram + rods; possible contaminant, ID consulted - recommends doxy/cipro on discharge x 2 weeks local wound care per surgery tolerating PO pain medication as needed continue home medications anti-hypertensives restarted, added norvasc; improved VTE: lovenox Dispo: home, possibly tomorrow Time Spent Managing Pts Care (In Minutes): 35
[2021-12-25] MEDS: carvediloL 25 MG TAB PO SCH (09:00)
[2021-12-25] MEDS: AMLODIPINE 10 MG TAB PO SCH (09:00)
[2021-12-25] MEDS: lisinopriL 20 MG TAB PO SCH (09:00)
[2021-12-25] MEDS: hydroCHLOROthiazide 25 MG TAB PO SCH (09:00)
[2021-12-25] MEDS ORDERED: CEFEPIME 2 GM VIAL ONE (09:05)
[2021-12-25] MEDS: CEFEPIME 2 GM in NA CHLORIDE 0.9% 100 ML IV SCH ×2 (11:15→21:36)
[2021-12-25] MEDS ORDERED: NA CHLORIDE 0.9% 100 ML ONE (11:23)
--- NOTE | 2021-12-25 14:59 | PN ---
Subjective: The patient sitting in bed, feeling much better today. Denies any headache, nausea, vom iting, chest pain, abdominal pain, constipation, or diarrhea. Objective: Vital Signs: Temperature 97, pulse 60, respirations 16, blood pressure 115/61. Lungs: Basal crackles. Heart: S1, S2. Regular. Abdomen: Soft. Bowel sounds present. Obese. Extremities: 2+ edema. Laboratory Data: Reviewed. Assessment And Plan: Osteomyelitis of left second toe, status post amputation, cellulitis of right l ower extremity, currently on cefepime and vancomycin, can be switched to doxycycline and Cipro on dis charge. We will follow the patient closely. NF/MODL Voice ID: [id number] Report ID: [id number]
[2021-12-25] MEDS: ENOXAPARIN 40 MG/0.4 ML SQ SCH (17:49)
[2021-12-25 22:06] VITALS: O2SAT 99
[2021-12-25] MEDS: HYDROCODONE/APAP 5/325 MG TAB PO PRN (23:09)
[2021-12-26 05:46] LABS: Potassium 3.9 mmol/L (3.5-5.1)
[2021-12-26 08:47] VITALS: BP 142/82; TEMP 99.4
[2021-12-26] MEDS ORDERED: predniSONE 20 MG TAB PO ONE (08:59)
[2021-12-26] MEDS: carvediloL 25 MG TAB PO SCH (09:16)
[2021-12-26] MEDS: CEFEPIME 2 GM in NA CHLORIDE 0.9% 100 ML IV SCH (09:16)
[2021-12-26] MEDS: hydroCHLOROthiazide 25 MG TAB PO SCH (09:17)
[2021-12-26] MEDS: lisinopriL 20 MG TAB PO SCH (09:17)
[2021-12-26] MEDS: AMLODIPINE 10 MG TAB PO SCH (09:17)
[2021-12-26] MEDS ORDERED: CIPROFLOXACIN HCL 500 MG TAB PO SCH ×2 (10:00→21:00)
[2021-12-26] MEDS ORDERED: DOXYCYCLINE 100 MG CAP PO SCH (10:00)
--- NOTE | 2021-12-26 23:05 | P.DS ---
Admission Date: 12/21/21 Discharge Date: 12/26/21 Disposition: ROUTINE DISCHARGE Discharge Condition: GOOD Reason for Admission: Osteomyelitis Consultations: General Surgery - Dr. Olson ID - Dr. Montoya Brief History of Present Illness: 61yo M, PMH: HTN, eczema on steroids Presents to ED due to left second toe wound progressively worsening. First noticed a few weeks ago and has gotten worse. Necrotic tissue present to the distal tip of the left second toe with erythema proximal to necrotic tissue. Workup in ED reveaeld osteomyelitis changes on imaging. He was started on IV antibiotics and admitted for further management. Hospital Course: Problem List Left 2nd toe gangrene with acute osteomyelitis, now s/p amputation (12/22) HTN Pre-diabetes eczema Patient presented with left 2nd toe gangrene with acute osteomyelitis. Dr. Olson was consulted and patient underwent amputation on 12/22. Blood cultures grew gram positive rods in 1 of 4 bottles. Infectious disease was consulted and recommended discharge with cipsagrario and erlin, as this is contaminant. Patient remained afebrile and continued to improve. He was noted to have high blood pressure despite restarting his home medication. Discharged with 10 more days of antibiotics t o complete 14 days. Continue local wound care. 05/13" iodoform packing to left foot wound daily. Follow up with Dr. Olson within 1 week - in the wound clinic. Follow up with PCP within 1 week HGb A1c was 6.4, putting patient in pre-diabetic range. He has also been on a long taper of steroids for his eczema which likely increased his glucose levels as well. Recommend follow up with PCP, 5-10% weight loss, diet, exercise (lifestyle changes). Repeat A1c in ~6 months, ideally at least 3 months once off steroids. Physical Exam: Gen: NAD, AOx3 HEENT: normal conjunctiva, sclera anicteric CV: regular rate & rhythm, trace-1+ bilaterally, R slightly > L Pulm: non-labored respirations, clear bilaterally MSK: dressing in place on left foot; mild serosanguinous drainage noted Integumentary: R lateral lower extremity - superficial abrasions, R great toe: distal superficial laceration, no surrounding erythema; eczema Neuro: normal speech, normal affect, str 5/5 x4 extremities Vital Signs/Physical Exam: Temp Pulse Resp BP Pulse Ox 99.4 F 62 18 142/82 H 97 12/26/21 08:00 12/26/21 09:17 12/26/21 08:00 12/26/21 09:17 12/26/21 08:00 Laboratory Data at Discharge: WBC 9.50 K/uL (4.3-10.9) 12/24/21 02:59 Hgb 13.8 g/dL (13.6-17.9) 12/24/21 02:59 Hct 40.1 % (39.6-49.0) 12/24/21 02:59 Plt Count 283 K/uL (152-406) 12/24/21 02:59 PT 11.5 SECONDS (9.5-12.5) 12/21/21 20:00 INR 1.04 12/21/21 20:00 APTT 34.1 SECONDS (24.3-36.9) 12/21/21 20:00 Sodium 136 mmol/L (136-145) 12/26/21 05:25 Potassium 3.9 mmol/L (3.5-5.1) 12/26/21 05:25 BUN 10 mg/dL (7-18) 12/26/21 05:25 Creatinine 0.89 mg/dL (0.55-1.3) 12/26/21 05:25 Glucose 117 mg/dL (74-106) H 12/26/21 05:25 Magnesium 2.0 mg/dL (1.8-2.4) 12/26/21 05:25 Total Bilirubin 0.6 mg/dL (0.2-1.0) 12/24/21 02:59 AST 14 U/L (15-37) L 12/24/21 02:59 ALT 34 U/L (12-78) 12/24/21 02:59 Alkaline Phosphatase 45 U/L (45-117) 12/24/21 02:59 Home Medications: Carvedilol 25 mg PO DAILY 03/15/16 Lisinopril/Hydrochlorothiazide [Lisinopril-Hctz 20-12.5 mg Tab] 2 tab PO DAILY 03/15/16 Amlodipine [Norvasc*] 10 mg PO DAILY 30 Days #30 tab 12/26/21 Ciprofloxacin HCl [Cipro] 500 mg PO BID 10 Days #20 tab 12/26/21 Codeine/APAP [Tylenol W/Codeine #3 tab] 1 tab PO Q6HP PRN #15 tab 12/26/21 Doxycycline Hyclate 100 mg PO BID 10 Days #20 cap 12/26/21 New Medications: Codeine/APAP [Tylenol W/Codeine #3 tab] 1 tab PO Q6HP PRN #15 tab PRN Reason: Pain Ciprofloxacin HCl [Cipro] 500 mg PO BID 10 Days #20 tab Doxycycline Hyclate 100 mg PO BID 10 Days #20 cap Amlodipine [Norvasc*] 10 mg PO DAILY 30 Days #30 tab Physician Discharge Instructions: Patient presented with left 2nd toe gangrene with acute osteomyelitis. Dr. Olson was consulted and patient underwent amputation on 12/22. Blood cultures grew gram positive rods in 1 of 4 bottles. Infectious disease was consulted and recommended discharge with cipro and doxy, as this is contaminant. Patient remained afebrile and continued to improve. He was noted to have high blood pressure despite restarting his home medication. Discharged with 10 more days of antibiotics t o complete 14 days. Continue local wound care. 05/13" iodoform packing to left foot wound daily. Follow up with Dr. Olson within 1 week - in the wound clinic. Follow up with PCP within 1 week HGb A1c was 6.4, putting patient in pre-diabetic range. He has also been on a long taper of steroids for his eczema which likely increased his glucose levels as well. Recommend follow up with PCP, 5-10% weight loss, diet, exercise (lifestyle changes). Repeat A1c in ~6 months, ideally at least 3 months once off steroids. Followup: Christopher Olson MD [ACTIVE - CAN ADMIT] - 1 Week NONE,NONE [Primary Care Provider] - Time spent managing pt's care (in minutes): 45
== END 2021-12-26 12:20 | disposition home or self-care (01) | DRG 504 ==
LOC: ER 16:57 → ERHOLD 21:42 → 2ND 12-22 15:48
PROVIDERS: ADMIT Internal Medicine; ATTEND Hospitalist
PROC: 0Y6S0Z0 Detachment at Left 2nd Toe, Complete, Open Approach (ICD-10-PCS; principal; 2021-12-22 12:00)
DX: M86.172 Other acute osteomyelitis, left ankle and foot (principal); I96 Gangrene, not elsewhere classified; L03.116 Cellulitis of left lower limb; I10 Essential (primary) hypertension; L30.9 Dermatitis, unspecified; Z90.49 Acquired absence of other specified parts of digestive tract; Z79.899 Other long term (current) drug therapy; Z20.822 Contact with and (suspected) exposure to COVID-19
CPT/HCPCS: 36415; 71045; 80048; 80053; 80076; 80202; 82947; 83036; 83605; 83735; 83880; 84132; 84484; 85025; 85610; 85730; 87040; 87205; 87811; 88305; 88311; 93005; 93926; 96365; 96366; 96375; 97161; 99285; J0360; J0692; J1170; J1650; J2250; J2405; J2704; J3010; J3370; J7030; J7040; J7050; J7512

== ENCOUNTER 2022-12-26 13:59 | Emergency (ER) | payer SELFPAY ==
--- OUTSIDE RECORDS SUMMARY | 2022-12-26 14:21 | XMS REPORT | Continuity of Care Document ---
:1960 Author Organization [facility] t Address [address] [facility] [address] [place] [id number] Care Team Providers Name Role Phone PCP, [...] problems problems [facility] Allergies, Adverse Reactions, Alerts Allergy Allergy Status Severity Reaction(s) Onset Inactive Treating Comm ents Source Name Type Date Date Clinician NO KNOWN Drug Active Univers ALLERGIE Class ity of S [facility] Social History Social Habit Start Date Stop Date Quantity Comments Source Sex Assigned At Uni versity [facility] Exposure to SARS-CoV-2 Not sure [facility] [place] (event) [facility] Smoking Status Start Date Stop Date Source Never smoker [facility] Medications Ordered Filled Start Stop Current Ordering Indication Dosage Frequency Signature Comments Components Source Medication Medication Date Date Medication? Clinician (SIG) Name Name amLODIPine 2020-0 Yes 5mg Take 5 mg Un jay 5 mg tablet 7-04 by mouth ity of 20:37: daily. [address] carvediloL 2020-0 Yes 25mg Take 25 mg U nivers 25 mg 7-04 by mouth 2 ity of tablet 20:37: (two) [address] daily with Branch meals. cephALEXin 2020-0 2020- No [id number] 500mg Take 1 Univers 500 mg -11-21 [id number] capsule by ity of capsule 00:00: 04:59 mouth 2 [place] 00 :00 (two) [facility] daily for 10 days. acetaminoph 2019- Yes [id number] 1{tbl} Take 1 Univers en-codeine 4-26 tablet by ity of 300-30 mg 00:00: mouth [place] tablet 00 every 6 Medical (six) Branch hours as needed for Pain (scale 7-10). lisinopril- Yes TAKE 2 Univ ers hydrochloro 2-06 TABLETS BY it y of thiazide 00:00: MOUTH ONCE [place] as 20-12.5 mg 00 DAILY FOR [facility] per tablet 90 DAYS Central Vital Signs Vital Name Observation Time Observation Value Comments Source Systolic blood 2019-11-11 20:32:00 136 mm[Hg] Univer sity of pressure [facility] Diastolic blood 2019-11-11 20:32:00 85 mm[facility]Hg] [facility] Heart rate 2019-11-11 20:32:00 64 /min [facility] Body temperature 2019-11-11 20:32:00 37 Beatriz [facility] Respiratory rate 2019-11-11 20:32:00 18 /min [facility] Body height 2019-11-11 20:32:00 181.6 cm [facility] Body weight 2019-11-11 20:32:00 137.893 kg [facility] BMI 2019-11-11 20:32:00 41.81 kg/m2 [facility] Oxygen saturation in 2019-11-11 20:32:00 96 /min [facility] Arterial blood by [facility] Pulse oximetry Branch Procedures This patient has no known procedures. Encounters Start End Encounter Admission Attending Care Care Encounter Source Date/Time Date/Time Type Type Clinicians Facility Department ID 2020-07-06 2020-07-06 Outpatient [facility] [id number] Univers 12:30:00 12:30:00 ity [facility] 2019-11-11 2019-11-11 Urgent Provider, [facility] [id number] Univers 15:29:27 15:49:27 Care Marshaidisidoro [facility] [id number] ity of [place] [id number] Davy as Professjosemanuel [phone] [place] [address] [address] 2019-11-11 2019-11-11 Outpatient R LAUREL [facility] [id number] Univers 15:00:00 15:00:00 MAIKEL sims [facility] 2019-09-03 2019-09-03 Outpatient R CATIA, [facility] [id number] Univers 15:00:00 15:00:00 MARCE sims [facility] Results This patient has no known results.
[2022-12-26] MEDS ORDERED: ACETAMINOPHEN 500 MG TAB ONE (15:19)
[2022-12-26] MEDS ORDERED: predniSONE 20 MG TAB ONE (15:19)
[2022-12-26] MEDS ORDERED: IBUPROFEN 400 MG TAB ONE (15:20)
--- NOTE | 2022-12-26 15:22 | ER ---
Nurse's Notes [facility] Name: Audi Alfaro Age: 62 yrs Sex: Male : 1960 Arrival Date: 12/26/2022 Time: 13:59 Bed DIS2 Private MD: Diagnosis: Gout, unspecified;Pain in right hand Presentation: 12/26 14:31 Chief complaint: Patient states: Right hand pain/swelling, onset a couple days ago, nj1 seemed to have gotten better yesterday but woke up to it worse today. Denies injury, states it has happened several times before, usually once a year. Coronavirus screen: Vaccine status: Patient reports receiving the 2nd dose of the covid vaccine. Ebola Screen: Patient denies travel to an Ebola-affected area in the 21 days before illness onset. Initial Sepsis Screen: Does the patient meet any 2 criteria? No. Patient's initial sepsis screen is negative. Does the patient have a suspected source of infection? No. Patient's initial sepsis screen is negative. Risk Assessment: Do you want to hurt yourself or someone else? Patient reports no desire to harm self or others. Onset of symptoms was December 24, 2022. 14:31 Method Of Arrival: Ambulatory [facility] 14:31 Acuity: ULYSSES 3 nj Historical: - Allergies: 14:33 No Known Allergies; nj1 - PMHx: 14:33 Hypertensive disorder; Irregular heart rate; nj1 - PSHx: 14:33 Toe amputation; nj1 - Immunization history:: Client reports receiving the 2nd dose of the Covid vaccine. - Social history:: Smoking status: Patient denies any tobacco usage or history of. Vital Signs: 14:31 BP 127 / 78; Pulse 64; Resp 18; Temp 98.8(O); Pulse Ox 96% ; Weight 134.72 kg; Height 6 nj1 ft. 0 in. ; Pain 9/10; 14:31 Body Mass Index 40.28 (134.72 kg, 182.88 cm) nj1 14:31 Pain Scale: Adult [facility] ED Course: 14:00 Patient arrived in ED. ts1 14:33 Triage completed. nj1 14:34 Arm band placed on left wrist. nj1 14:58 Kirit Patino MD is Attending Physician. jr11 15:11 Kwasi wrap to Right hand wrapped with kwasi wrap. ds4 Administered Medications: 15:13 Drug: Acetaminophen PO 1000 mg Route: PO; hb 15:13 Drug: Ibuprofen PO 400 mg Route: PO; hb 15:13 Drug: predniSONE PO 60 mg Route: PO; hb Outcome: 15:22 Discharge ordered by MD. tavares 15:23 Patient left the ED. hb Signatures: Adrian Ulrich ds4 Katherin Bansal RN RN hb iKrit Patino MD MD jr11 Elsa Calderón RN RN nj1 Denice Marshall, SALEEM PAS ts1
--- NOTE | 2022-12-26 15:22 | EDPHYS ---
Physician Documentation [facility] Name: Audi Alfaro Age: 62 yrs Sex: Male : 1960 Arrival Date: 12/26/2022 Time: 13:59 Bed DIS2 Private MD: ED Physician Kirit Patino HPI: 12/26 15:28 Patient is [id number] with history of gout here with hand swelling wrist jr11 swelling on the right side. Pain, moderate to severe worse with range of motion, no erythema no trauma no fever, has had the exact same thing happened to her before. Patient is here for steroids. Historical: - Allergies: 14:33 No Known Allergies; nj1 - PMHx: 14:33 Hypertensive disorder; Irregular heart rate; nj1 - PSHx: 14:33 Toe amputation; nj1 - Immunization history:: Client reports receiving the 2nd dose of the Covid vaccine. - Social history:: Smoking status: Patient denies any tobacco usage or history of. Exam: 15:28 Constitutional: This is a well developed, well nourished patient who is awake, alert, jr11 and in no acute distress. Head/Face: Normocephalic, atraumatic. Eyes: Extra-ocular motions intact. Lids and lashes normal. Conjunctiva and sclera are non-icteric and not injected. Cornea within normal limits. Periorbital areas with no swelling, redness, or edema. ENT: Nares patent. No nasal discharge, no septal abnormalities noted. Oropharynx with no redness, swelling, or masses, exudates, or evidence of obstruction, uvula midline. Mucous membranes moist. Neck: Trachea midline, no thyromegaly or masses palpated, and no cervical lymphadenopathy. Supple, full range of motion without nuchal rigidity, or vertebral point tenderness. No Meningismus. Chest/axilla: Normal chest wall appearance and motion. Nontender with no deformity. No lesions are appreciated. Respiratory: Lungs have equal breath sounds bilaterally, clear to auscultation and percussion. No rales, rhonchi or wheezes noted. No increased work of breathing, no retractions or nasal flaring. Abdomen/GI: Soft, non-tender, with normal bowel sounds. No distension or tympany. No guarding or rebound. No evidence of tenderness throughout. MS/ Extremity: Pulses equal, no cyanosis. Neurovascular intact. Full, normal range of motion. Except for right hand, diffuse nonpitting edema, wrist and hand, full range of motion neurovascular intact distally. Vital Signs: 14:31 BP 127 / 78; Pulse 64; Resp 18; Temp 98.8(O); Pulse Ox 96% ; Weight 134.72 kg; Height 6 nj1 ft. 0 in. ; Pain 9/10; 14:31 Body Mass Index 40.28 (134.72 kg, 182.88 cm) nj1 14:31 Pain Scale: Adult nj1 MDM: 15:04 Patient medically screened. jr11 15:28 Differential diagnosis: Patient's 62-year-old with right hand swelling, states this jr11 feels similar to his gout attacks, requesting steroids. Considered imaging however there is no trauma, not indicated. Wrote a prescription for prednisone, to use [id number] pain control. ER warnings given all results explained. 12/26 15:06 Order name: Kwasi Wrap; Complete Time: 15:11 [facility] Administered Medications: 15:13 Drug: Acetaminophen PO 1000 mg Route: PO; hb 15:13 Drug: Ibuprofen PO 400 mg Route: PO; hb 15:13 Drug: predniSONE PO 60 mg Route: PO; hb Disposition Summary: 12/26/22 15:22 Discharge Ordered Location: Home jr11 Condition: Fair jr11 Diagnosis - Gout, unspecified jr11 - Pain in right hand jr11 Followup: jr11 - With: Private Physician - When: 2 - 3 days - Reason: Re-evaluation by your physician Discharge Instructions: - Discharge Summary Sheet jr11 Forms: - Medication Reconciliation Form jr11 - Thank You Letter jr11 - Antibiotic Education jr11 - Prescription Opioid Use jr11 - Patient Portal Instructions jr11 - Leadership Thank You Letter jr11 Prescriptions: - Medrol (Daniel) 4 mg Oral Tablets, Dose Pack - take 1 tablet by ORAL route as directed - follow package instructions; 1 [facility] packet; Refills: 0, Product Selection Permitted Signatures: Katherin Bansal, RN RN Kirit Patino MD MD jr11 Elsa Calderón RN RN nj1
[2022-12-26 15:49] VITALS: BP 127/78; TEMP 98.8; O2SAT 96
== END 2022-12-26 15:23 | disposition home or self-care (01) ==
LOC: ER 13:59
DX: M10.9 Gout, unspecified (principal); I10 Essential (primary) hypertension
CPT/HCPCS: 99283; J7512

== ENCOUNTER → 2023-06-06 | Emergency (ER) | payer SELFPAY ==
[~2023-06-06] MED LIST: FLUORESCEIN SODIUM 1 MG/WRAP ONE; TETRACAINE HCL 0.5% 4ML OPTH ONE
--- OUTSIDE RECORDS SUMMARY | 2023-06-06 13:33 | XMS REPORT | Continuity of Care Document ---
Author Name Unknown Address [address] [facility]. [address] th[address] Address [address] [facility]. 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 Name Role Phone PCP, PATIENT DOES NOT HAVE A Primary Care Physic [place] Unavailable Provider, [facility] Attending Clinician Un available Maikel Shoemaker Attending Clinician MAIKEL BARRAGAN Attending Clinician Unavailable MARCE BARDALES Attending Clinician Unavailable Problems Condition Name Condition Details Condition Category Status Onset Date Resolution Date Last Treatment Date Treating Clinician Comments Source No known active problems No known active problems Disease [facility] Allergies, Adverse Reactions, Alerts Allergy Name Allergy Type Status Severity Reaction(s) Onset Date Inactive Date Treating Clinician Comments Source NO KNOWN ALLERGIE S Drug Class Active [facility] Social History Social Habit Start Date Stop Date Quantity Comments Source Sex Assigned At [facility] Exposure to SARS-CoV-2 (event) Not sure [facility] Smoking Status Start Date Stop Date Source Never smoker [facility] Medications Ordered Medication Name Filled Medication Name Start Date Stop Date Current Medication? Ordering Clinician Indication Dosage Frequency Signature (SIG) Comments Components Source amLODIPine 5 mg tablet 11-10 20:37: 29 Yes 5mg Take 5 mg by mouth daily. [facility] carvediloL 25 mg tablet 11-10 20:37: 29 Yes 25mg Take 25 mg by mouth 2 (two) times daily with meals. [facility] cephALEXin 500 mg capsule 11-10 00:00: 00 11-21 04:59 :00 No [id number] 500mg Take 1 capsule by mouth 2 (two) times daily for 10 days. [facility] acetaminoph en-codeine 300-30 mg tablet - 00:00: 00 Yes [id number] 1{tbl} Take 1 tablet by mouth every 6 (six) hours as needed for Pain (scale 7-10). [facility] lisinopril- hydrochloro thiazide 20-12.5 mg per tablet 06-15 00:00: 00 Yes TAKE 2 TABLETS BY MOUTH ONCE DAILY FOR 90 DAYS [facility] Vital Signs Vital Name Observation Time Observation Value Comments S ourpravin Systolic blood pressure 2019-11-11 20:32:00 136 mm[Hg] [facility] Diastolic blood pressure 2019-11-11 20:32:00 85 mm[Hg] [facility] Heart rate 2019-11-11 20:32:00 64 /min [facility] Body temperature 2019-11-11 20:32:00 37 Beatriz [facility] Respiratory rate 2019-11-11 20:32:00 18 /min [facility] Body height 2019-11-11 20:32:00 181.6 cm [facility] Body weight 2019-11-11 20:32:00 137.893 kg [facility] BMI 2019-11-11 20:32:00 41.81 kg/m2 [facility] Oxygen saturation in Arterial blood by Pulse oximetry 2019-11-11 20:32:00 96 /min [facility] Encounters Start Date/Time End Date/Time Encounter Type Admission Type Attending Clinicians Care Facility Care Department Encounter ID Source 2020-07-06 12:30:00 2020-07-06 12:30:00 Outpatient [facility] [id number] [facility] 2019-11-11 15:29:27 2019-11-11 15:49:27 Urgent Care Provider, [facility] Maikel Barragan [facility] [address] [id number] [facility] 2019-11-11 15:00:00 2019-11-11 15:00:00 Outpatient MAIKEL HASSAN [facility] [id number] [facility] 2019-09-03 15:00:00 2019-09-03 15:00:00 Outpatient MARCE MORALES [facility] [id number] [facility]
--- NOTE | 2023-06-06 14:46 | EDPHYS ---
Physician Documentation [facility] Name: Santiago Alfaro Age: 62 yrs Sex: Male : 1960 Arrival Date: 06/06/2023 Time: 13:30 Bed 18 Private MD: ED Physician Bryson Fong HPI: 06/06 13:51 This 62 yrs old Male presents to ER via Ambulatory with complaints of eye pain. sb4 13:53 The patient is experiencing foreign body sensation, tearing, to both eyes. Onset: The sb4 symptoms/episode began/occurred 1 month(s) ago. Duration: the symptoms are episodic. Aggravated by light, rubbing, Alleviated by covering eye. Associated signs and symptoms: Pertinent positives: runny nose, Pertinent negatives: chills, dizziness, ear ache, fever, headache. Patient does not utilize any form of vision correction occasional reading glasses. The patient has not experienced similar symptoms in the past. The patient has not recently seen a physician. Historical: - Allergies: 13:46 No Known Allergies; hb - Home Meds: 13:46 Coreg Oral [Active]; lisinopril Oral [Active]; hb - PMHx: 13:46 Hypertensive disorder; Irregular heart rate; hb - PSHx: 13:46 toe amputation; hb - Immunization history:: Adult Immunizations up to date, Client reports receiving the 2nd dose of the Covid vaccine, Flu vaccine is up to date. - Social history:: Smoking status: Patient denies any tobacco usage or history of. ROS: 13:53 Constitutional: Negative for fever, chills, and weight loss, sb4 13:53 Eyes: Positive for discharge, foreign body sensation, tearing, 13:53 All other systems are negative, Exam: 13:53 Constitutional: This is a well developed, well nourished patient who is awake, alert, sb4 and in no acute distress. Head/Face: Normocephalic, atraumatic. Eyes: Extra-ocular motions intact. Periorbital areas with no swelling, redness, or edema. ENT: Mucous membranes moist. Skin: Warm, dry with normal turgor. Normal color with no rashes, no lesions, and no evidence of cellulitis. MS/ Extremity: Pulses equal, no cyanosis. Neurovascular intact. Full, normal range of motion. Neuro: Awake and alert, GCS 15, oriented to person, place, time, and situation. Motor strength 5/5 in all extremities. Sensory grossly intact. 14:52 Visual Acuity: Visual acuity is within normal limits. sb4 Vital Signs: 13:42 BP 150 / 92; Pulse 58; Resp 16; Temp 98.2(O); Pulse Ox 98% on R/A; Weight 127.01 kg; hb Height 6 ft. 0 in. ; Pain 5/10; 14:54 BP 143 / 92; Pulse 55; Resp 16 S; Pulse Ox 99% on R/A; aa5 13:42 Body Mass Index 37.97 (127.01 kg, 182.88 cm) hb 13:42 Pain Scale: Adult hb Procedures: 14:52 Eye Exam: tetracaine and fluorescein stain revealed no corneal abrasion or ulcer. sb4 MDM: 13:36 Patient medically screened. sb4 14:52 Differential diagnosis: Corneal abrasion of both eyes. Corneal ulcer of both eyes. sb4 Foreign body in both eyes. Acute iritis of both eyes. Allergic conjunctivitis in both eyes. Data reviewed: vital signs, nurses notes, and as a result, I will discharge patient. Counseling: I had a detailed discussion with the patient and/or guardian regarding the historical points, exam findings, and any diagnostic results supporting the discharge/admit diagnosis, the need for outpatient follow up, an opthalmologist, to return to the emergency department if symptoms worsen or persist or if there are any questions or concerns that arise at home. Administered Medications: 14:55 Drug: Tetracaine Ophthalmic Drops 0.5 % 1 drops Ophthalmic once {Note: administered by aa5 provider during eye exam. .} Route: Ophthalmic; Site: both eyes; 14:55 Drug: Fluorescein Ophthalmic Strip 2 strip Ophthalmic once {Note: by provider for eye aa5 exam.} Route: Ophthalmic; Site: both eyes; Disposition: 17:35 Co-signature as Attending Physician, Bryson Fong MD I reviewed the patient's care rt provided by the Advanced Practice Provider and agree with the diagnosis and treatment plan. Disposition Summary: 06/06/23 14:45 Discharge Ordered Notes: Location: Home sb4 Problem: an ongoing problem sb4 Symptoms: are unchanged sb4 Condition: Stable sb4 Diagnosis - conjunctivis, unspecific, bilateral sb4 Followup: sb4 - With: Dutch Marr MD - When: 1 week - Reason: Recheck today's complaints, Re-evaluation by your physician Discharge Instructions: - Discharge Summary Sheet sb4 - Allergic Conjunctivitis, Adult, Xkeb-ru-Qbal sb4 Forms: - Medication Reconciliation Form sb4 - Thank You Letter sb4 - Antibiotic Education sb4 - Prescription Opioid Use sb4 - Patient Portal Instructions sb4 - Leadership Thank You Letter sb4 Prescriptions: - azelastine 0.05 % Ophthalmic drops - instill 1 drop OPHTHALMIC route 2 times per day; 1 Applicator; Refills: 0, sb4 Product Selection Permitted - cetirizine 10 mg Oral tablet - take 1 tablet ORAL route daily; 10 tablet; Refills: 0, Product Selection sb4 Permitted Signatures: Jennifer Valenzeula RN RN aa5 Katherin Bansal RN RN Domi Saldaña, PABobC PABobC sb4 Bryson Fong MD MD rt
--- NOTE | 2023-06-06 14:46 | ER ---
Nurse's Notes [facility] Name: Santiago Alfaro Age: 62 yrs Sex: Male : 1960 Arrival Date: 06/06/2023 Time: 13:30 Bed 18 Private MD: Diagnosis: conjunctivis, unspecific, bilateral Presentation: 06/06 13:42 Chief complaint: Intermittent bilateral eye pain, itching, drainage, and blurred vision hb x 1 month. Coronavirus screen: At this time, the client does not indicate any symptoms associated with coronavirus-19. Ebola Screen: No symptoms or risks identified at this time. Initial Sepsis Screen: Does the patient meet any 2 criteria? No. Patient's initial sepsis screen is negative. Does the patient have a suspected source of infection? No. Patient's initial sepsis screen is negative. Risk Assessment: Do you want to hurt yourself or someone else? Patient reports no desire to harm self or others. Onset of symptoms was April 2024. 13:42 Method Of Arrival: Ambulatory hb 13:42 Acuity: ULYSSES 4 hb Historical: - Allergies: 13:46 No Known Allergies; hb - Home Meds: 13:46 Coreg Oral [Active]; lisinopril Oral [Active]; hb - PMHx: 13:46 Hypertensive disorder; Irregular heart rate; hb - PSHx: 13:46 toe amputation; hb - Immunization history:: Adult Immunizations up to date, Client reports receiving the 2nd dose of the Covid vaccine, Flu vaccine is up to date. - Social history:: Smoking status: Patient denies any tobacco usage or history of. Screenin:55 [facility] ED Fall Risk Assessment (Adult) Score/Fall Risk Level 0 - 2 = Low Risk. Abuse as6 screen: Denies threats or abuse. Denies injuries from another. Nutritional screening: No deficits noted. Tuberculosis screening: No symptoms or risk factors identified. Assessment: 14:55 Reassessment: Patient is alert, oriented x 3, equal unlabored respirations, skin aa5 warm/dry/pink. Vital Signs: 13:42 BP 150 / 92; Pulse 58; Resp 16; Temp 98.2(O); Pulse Ox 98% on R/A; Weight 127.01 kg; hb Height 6 ft. 0 in. ; Pain 5/10; 14:54 BP 143 / 92; Pulse 55; Resp 16 S; Pulse Ox 99% on R/A; aa5 13:42 Body Mass Index 37.97 (127.01 kg, 182.88 cm) hb 13:42 Pain Scale: Adult hb ED Course: 13:32 Patient arrived in ED. mr 13:35 Domi Toledo PA-C is PHCP. sb4 13:35 Bryson Fong MD is Attending Physician. sb4 13:46 Triage completed. hb 13:46 Arm band placed on. hb 13:55 Bed in low position. Call light in reach. as6 14:38 Dennise Umaña is Primary Nurse. cp4 14:45 Dutch Marr MD is Referral Physician. sb4 14:56 No provider procedures requiring assistance completed. Patient did not have IV access aa5 during this emergency room visit. Administered Medications: 14:55 Drug: Tetracaine Ophthalmic Drops 0.5 % 1 drops Ophthalmic once {Note: administered by aa5 provider during eye exam. .} Route: Ophthalmic; Site: both eyes; 14:55 Drug: Fluorescein Ophthalmic Strip 2 strip Ophthalmic once {Note: by provider for eye aa5 exam.} Route: Ophthalmic; Site: both eyes; Medication: 13:55 VIS not applicable for this client. as6 Outcome: 14:45 Discharge ordered by MD. sb4 14:55 Discharged to home ambulatory, with family, aa5 14:55 Condition: stable 14:55 Discharge instructions given to patient, Instructed on discharge instructions, follow up and referral plans. medication usage, Demonstrated understanding of instructions, follow-up care, medications, Prescriptions given X 2, 14:56 Patient left the ED. aa5 Signatures: Michelle Croft, Reg Reg mr ValenzuelaJennifer, RN RN aa5 Katherin Bansal, SEBASTIAN RN Bernard Flaherty RN RN as6 Domi Toledo PA-C PA-C sb4 Dennise Umaña cp4
[2023-06-06 16:56] VITALS: BP 150/92; TEMP 98.2; O2SAT 98
== END ==
LOC: ER 13:30
DX: H10.9 Unspecified conjunctivitis (principal)